=== PATIENT | male | born 2000 | race Two or more races ===

== ENCOUNTER 2021-08-22 07:28 | Emergency (ER) | payer OTHER ==
[~2021-08-22] VITALS: Ht 177.8 cm; Wt 122.5 kg
[2021-08-22] MEDS ORDERED: InsuLIN R (HUMAN) 100 UNITS in SODIUM CHL 0.9% 99 ML IV SCH (08:15)
[2021-08-22] MEDS ORDERED: SODIUM CHLORIDE 0.9% 1,000 ML IV ONE ×2 (08:15)
[2021-08-22] MEDS ORDERED: DEXTROSE (50%) 50ML SYRG IV PRN (08:15)
[2021-08-22] MEDS ORDERED: INSULIN LANTUS (GLARGINE) 1 /0.01ml (100units/ml) SC ONE (08:15)
[2021-08-22 08:21] LABS: Basophils # (auto) 0.1 10 ^3/uL (0-0.2); Basophils % (auto) 0.7 % (0.0-2.0); Eosinophils # (auto) 0 10 ^3/uL (0-0.8); Hematocrit 50.2 % (41.0-53.0); Hemoglobin 16.2 g/dL (13.5-17.5); Lymphocytes # (auto) 0.9 10 ^3/uL (0.4-5.4); Lymphocytes % (auto) 5.9 % (10.0-50.0); Mean Corpuscular Hemoglobin 28.1 pg (28.0-32.0); Mean Corpuscular Hgb Conc. 32.3 g/dL (32.0-36.0); Mean Corpuscular Volume 87.1 fL (80.0-100.0); Monocytes # (auto) 0.4 10 ^3/uL (0-1.3); Monocytes % (auto) 2.4 % (0.0-12.0); Neutrophils # (auto) 13.8 10 ^3/uL (1.6-8.6); Red Blood Cells 5.77 10^6/uL (4.5-5.90); Red Cell Distribution Width 13.7 % (11.8-14.3); White Blood Cell 15.1 10^3/uL (4.4-10.8)
[2021-08-22 08:37] LABS: Albumin 4.8 g/dL (3.4-5.0); Calcium 11.2 mg/dL (8.5-10.1); Potassium 4.9 mmol/L (3.5-5.1)
[2021-08-22 08:42] LABS: Total Protein 9.7 g/dL (6.4-8.2)
[2021-08-22 08:49] LABS: BUN/Creatinine Ratio 12.4
[2021-08-22] MEDS ORDERED: ONDANSETRON HCL 4 MG/2 ML VIAL IV ONE (09:00)
[2021-08-22] MEDS: ACCU-CHEK COMFORT CURVE STRIP VI SCH ×5 (09:07→13:59)
[2021-08-22 10:11] LABS: Urine WBC None Seen /hpf (0 - 3)
[2021-08-22 12:40] LABS: Urine Bacteria NONE SEEN /hpf (None Seen); Urine Blood Negative /uL (Negative); Urine Specific Gravity 1.024 (1.001-1.035)
[2021-08-22] MEDS ORDERED: hydrALAZINE HCL 20 MG/ML VL IV PRN ×2 (13:45→15:15)
[2021-08-22] MEDS ORDERED: LACTULOSE 20Gm/30ML SOLN PO PRN ×2 (13:45→15:15)
[2021-08-22] MEDS ORDERED: LACTATED RINGER'S 2,000 ML IV ONE (13:45)
[2021-08-22] MEDS ORDERED: ONDANSETRON HCL 4 MG/2 ML VIAL IV PRN ×2 (13:45→15:15)
[2021-08-22] MEDS ORDERED: HYDROcodone-ACET 5/325MG TAB PO PRN (13:45)
[2021-08-22] MEDS ORDERED: LORazepam 0.5 MG TAB PO PRN ×2 (13:45→15:15)
[2021-08-22] MEDS ORDERED: SODIUM CHLORIDE 0.9% 3,000 ML IV ONE (13:45)
[2021-08-22] MEDS ORDERED: cefTRIAXone 1GM/50ML D5W 50 ML IV ONE (13:45)
[2021-08-22] MEDS ORDERED: DOCUSATE SOD 100 MG CAP PO PRN ×2 (13:45→15:15)
[2021-08-22] MEDS ORDERED: NITROGLYCERIN 0.4 MG SL TAB SL PRN (13:45)
[2021-08-22] MEDS ORDERED: IPRATROPIUM BROM 0.5 MG/2.5ML INH SOL NEB ONE ×2 (13:45→15:15)
[2021-08-22] MEDS ORDERED: METOCLOPRAMIDE HCL 5MG/ml INJ 2ml VIAL IV PRN (13:45)
[2021-08-22] MEDS ORDERED: SODIUM CHLORIDE 0.9% 1,000 ML IV SCH (13:45)
[2021-08-22] MEDS ORDERED: SOD CHL 0.9%/ KCL 20MEQ 1,000 ML IV PRN (13:45)
[2021-08-22] MEDS ORDERED: MORPHINE SULFATE INJECTION 2 MG/ML SYRG IV PRN ×3 (13:45→15:15)
[2021-08-22] MEDS ORDERED: MULTIPLE VITAMINS W/ MINERALS TAB PO ONE (13:45)
[2021-08-22] MEDS ORDERED: D5W/SOD CHLO 0.9% 1,000 ML IV PRN (13:45)
[2021-08-22] MEDS ORDERED: SUCRALFATE 1 GM/10 ML ORAL SUSP PO ONE ×2 (13:45→15:15)
[2021-08-22] MEDS ORDERED: FAMOTIDINE (10MG/ML) 2ML VL IV ONE (13:45)
[2021-08-22] MEDS ORDERED: PANTOPRAZOLE 40 MG/10 ML VIAL INJ IV ONE (15:15)
[2021-08-22] MEDS ORDERED: IPRATROPIUM BROM 0.5 MG/2.5ML INH SOL NEB PRN (15:15)
[2021-08-22] MEDS ORDERED: FOLIC ACID 1 MG TAB PO ONE (15:15)
[2021-08-22] MEDS ORDERED: HYDROcodone-ACET 5/325MG TAB PO ONE (15:15)
[2021-08-22 17:00] VITALS: BP 116/68
[2021-08-22] MEDS ORDERED: IPRATROPIUM BROM 0.5 MG/2.5ML INH SOL NEB SCH (18:00)
[2021-08-22] MEDS ORDERED: SUCRALFATE 1 GM/10 ML ORAL SUSP PO SCH ×2 (22:00)
[2021-08-22] MEDS ORDERED: ATORVASTATIN 20 MG TAB PO SCH ×2 (22:00)
[2021-08-23] MEDS ORDERED: cefTRIAXone 1GM/50ML D5W 50 ML IV SCH (09:00)
[2021-08-23] MEDS ORDERED: INSULIN LANTUS (GLARGINE) 1 /0.01ml (100units/ml) SC SCH (10:00)
[2021-08-23] MEDS ORDERED: PANTOPRAZOLE 40 MG/10 ML VIAL INJ IV SCH (10:00)
[2021-08-23] MEDS ORDERED: ENOXAPARIN SOD 40 MG/0.4 ML SYRINGE SC SCH ×2 (10:00)
[2021-08-23] MEDS ORDERED: CHOLECALCIFEROL (VITD3) 2,000 UNIT CAP/TAB PO SCH ×2 (10:00)
[2021-08-23] MEDS ORDERED: FOLIC ACID 1 MG TAB PO SCH (10:00)
[2021-08-23] MEDS ORDERED: ASPirin 81 mg TAB PO SCH ×2 (10:00)
[2021-08-23] MEDS ORDERED: FAMOTIDINE (10MG/ML) 2ML VL IV SCH (10:00)
[2021-08-23] MEDS ORDERED: MULTIPLE VITAMINS W/ MINERALS TAB PO SCH (10:00)
== END 2021-08-22 17:25 | disposition left against medical advice (07) ==
LOC: ER 07:28
DX: E11.10 Type 2 diabetes mellitus with ketoacidosis without coma (principal); Z53.29 Procedure and treatment not carried out because of patient's decision for other reasons; Z20.822 Contact with and (suspected) exposure to COVID-19
CPT/HCPCS: 36415; 36600; 80053; 81001; 82010; 82805; 82962; 85025; 87086; 87426; 93005; 96365; 96366; 96368; 96372; 96375; 99285; C9113; J0696; J1815; J2405; J3490; J7030

== ENCOUNTER 2021-08-25 06:06 | Emergency (ER) | payer OTHER ==
[~2021-08-25] VITALS: Ht 177.8 cm; Wt 122.5 kg
[2021-08-25] MEDS ORDERED: LACTATED RINGER'S 2,000 ML IV ONE (06:30)
[2021-08-25 06:56] LABS: Basophils # (auto) 0 10 ^3/uL (0-0.2); Basophils % (auto) 0.2 % (0.0-2.0); Eosinophils # (auto) 0 10 ^3/uL (0-0.8); Eosinophils % (auto) 0.3 % (0.0-7.0); Hematocrit 47.9 % (41.0-53.0); Hemoglobin 16.4 g/dL (13.5-17.5); Lymphocytes # (auto) 1.9 10 ^3/uL (0.4-5.4); Lymphocytes % (auto) 12.5 % (10.0-50.0); Mean Corpuscular Hemoglobin 28.6 pg (28.0-32.0); Mean Corpuscular Hgb Conc. 34.3 g/dL (32.0-36.0); Mean Corpuscular Volume 83.2 fL (80.0-100.0); Monocytes # (auto) 0.9 10 ^3/uL (0-1.3); Monocytes % (auto) 5.8 % (0.0-12.0); Neutrophils # (auto) 12.3 10 ^3/uL (1.6-8.6); Neutrophils % (auto) 81.2 % (37.0-80.0); Nucleated Red Blood Cells % 0.1 %; Red Blood Cells 5.75 10^6/uL (4.5-5.90); Red Cell Distribution Width 13.6 % (11.8-14.3); White Blood Cell 15.2 10^3/uL (4.4-10.8)
[2021-08-25 07:30] LABS: Albumin 4.2 g/dL (3.4-5.0); Calcium 9.4 mg/dL (8.5-10.1); Magnesium 2.2 mg/dL (1.6-2.6); Potassium 3.5 mmol/L (3.5-5.1)
[2021-08-25 07:37] LABS: BUN/Creatinine Ratio 10.6; Bilirubin, Total 0.9 mg/dL (0.2-1.0); Total Protein 8.7 g/dL (6.4-8.2)
[2021-08-25 07:43] LABS: Urine WBC None Seen /hpf (0 - 3)
[2021-08-25] MEDS ORDERED: POTASSIUM CHLORIDE 20 MEQ in D5W 5% 1,000 ML IV SCH (07:45)
[2021-08-25 08:08] LABS: Urine Bacteria NONE SEEN /hpf (None Seen); Urine Blood Negative /uL (Negative); Urine Hyaline Cast FEW /lpf (0 - 2); Urine Specific Gravity 1.027 (1.001-1.035)
[2021-08-25] MEDS ORDERED: D5W 5% 1,000 ML IV SCH (08:30)
[2021-08-25] MEDS: POTASSIUM CHL 10MEQ/50ML 50 ML IV SCH ×2 (08:42→09:57)
[2021-08-25] MEDS ORDERED: InsuLIN R (HUMAN) 100 UNITS in SODIUM CHL 0.9% 99 ML IV SCH (10:00)
[2021-08-25] MEDS ORDERED: ONDANSETRON HCL 4 MG/2 ML VIAL IV ONE (10:00)
[2021-08-25] MEDS ORDERED: DEXTROSE (50%) 50ML SYRG IV PRN (10:00)
[2021-08-25] MEDS: ACCU-CHEK COMFORT CURVE STRIP VI SCH ×3 (10:25→13:35)
[2021-08-25 12:19] LABS: Albumin 3.5 g/dL (3.4-5.0); Calcium 9.2 mg/dL (8.5-10.1); Potassium 3.9 mmol/L (3.5-5.1)
[2021-08-25 12:21] LABS: BUN/Creatinine Ratio 9.9
[2021-08-25 12:27] LABS: Bilirubin, Total 0.7 mg/dL (0.2-1.0); Total Protein 7.1 g/dL (6.4-8.2)
[2021-08-25 13:36] VITALS: BP 135/74
[2021-08-25] MEDS ORDERED: ONDA-144 PO (14:44)
== END 2021-08-25 12:58 | disposition home or self-care (01) ==
LOC: ER 06:06
DX: E10.65 Type 1 diabetes mellitus with hyperglycemia (principal); E86.0 Dehydration
CPT/HCPCS: 36415; 36600; 71045; 80053; 81001; 82010; 82805; 82962; 83605; 83690; 83735; 83880; 84484; 85025; 93005; 96361; 96374; 99285; J1815; J2405; J3480

== ENCOUNTER 2024-07-14 19:20 | Inpatient (IN) | payer MEDICAID, OTHER ==
[~2024-07-14] VITALS: Ht 177.8 cm; Wt 122.9 kg
[2024-07-14] MEDS: SODIUM CHLORIDE 0.9% 1,000 ML IV SCH (00:15)
[~2024-07-14 19:20] MED LIST: ONDA-144 PO
--- NOTE | 2024-07-14 19:34 | ED.PDOC ---
HPI Comments HPI: Poor Historian. 24-year-old male presents to emergency department for midsternal chest pressure pain in the last 3-4 months nonradiating. No particular alleviating or precipitating factors however he feels when he rubs his chest it produces the pain. He also sometimes feel that when he is anxious he gets the pain. However currently he is having active chest pain while laying in the gurney. He describes it as pressure. Denies any other associated symptoms. Patient states compliance with his medications. Denies any use of drugs. Past Medcial History: Diabetes, hyperlipidemia, marijuana abuse, Past Surgical History: Denies any Patient states having positive family history of coronary artery disease on his mother's side but he is not sure. REVIEW OF SYSTEMS: CONSTITUTIONAL: Denies acute: fever, diaphoresis, chills, generalized weakness. HEAD: Denies acute: headache, photophobia Eyes: Denies acute: Double vision, vision loss, eye pain, eye discharge. EARS: Denies acute: tinnitus, hearing loss, ear discharge, ear pain, THROAT: Denies acute: sore throat, swelling, difficulty swallowing , pain with swallowing, change in voice. NECK: Denies acute: neck pain, neck swelling, stiff neck. HEART: Denies acute : , palpitations, LUNGS: Denies acute: SOB, wheezing, cough, hemoptysis ABDOMEN: Denies acute: abdominal pain, diarrhea, melena , hematemesis, hematochezia SKIN: Denies acute: rash, redness, lesions, itchiness. EXTREMITIES: Denies acute: calf pain, numbness, tingling, weakness, denies pain in extremity. Denies acute: Low back pain. Neuro: Denies acute: focal neurological deficit, motor or sensory focal neurological deficit, tremors, seizure like activity, confusion, dizziness, change in mental status, loss of bowel or bladder function, cauda equina like symptoms. : Denies acute: dysuria, hematuria, flank pain, increase in urinary frequency. PSYCH: Denies acute: hallucination, suicidal ideation, homicidal ideation. PHYSICAL EXAM: General: no acute distress, awake and alert. Head: normocephalic, atraumatic. Neck: supple, trachea is midline, no swelling. Throat: Normal phonation. Eyes:, no erythema, no purulent discharge, no proptosis, no icterus. Heart: regular tachycardic, no significant murmur appreciated. Lungs: no apparent respiratory distress, Able to speak in full sentences. No wheezing, no rhonchi, no crackles. No stridors Clear to auscultation bilaterally. Abdomen: non tender to palpation, non distended, soft, no guarding, no rebound, + bowel sounds. Neuro: Awake, Alert, oriented to name, self, situation, follows commands GCS=15. Speech is normal. Skin: no petechia, no purpura, no cyanosis, non-pale, not jaundice. Lower extremities: --no - Pitting edema no deformity, no focal swelling, no calf TTP. Makes eye contact. moves all four extremities. Face: no apparent facial droop. Ambulating in the ED independently. Chief Complaint: Chest Pain Time Seen by MD: 19:26 Primary Care Provider: AFSANEHIES Reviewed Notes: Nurses Notes, Medications, Allergies Allergies: Coded Allergies: NO KNOWN ALLERGIES (Unverified , 06/01/16) Home Meds Active Scripts Ondansetron (Zofran) 4 Mg Tab, 4 MG PO TID PRN for 3 Days, #9 TAB Prov:DEAN MCKEON MD 08/25/21 Reported Medications Fluoxetine Hcl (Fluoxetine Hcl) 10 Mg Cap, 10 MG PO DAILY for 30 Days, MG 07/16/24 Atorvastatin Calcium (ATORVASTATIN CALCIUM) 10 Mg Tab, 1 TAB PO DAILY, #30 TAB 5 Refills 07/16/24 Discontinued Reported Medications Atorvastatin Calcium (Lipitor) 20 Mg Tab, 1 TAB PO DAILY, #90 TAB 1 Refill 07/15/24 Information Source: Patient Mode of Arrival: Ambulatory Past Medical History PAST MEDICAL HISTORY: DM Surgical History: Denies all surgeries Family History Family History: No family hx of Cancer, No family hx of DM Social History Smoker: Non-Smoker Alcohol: Denies ETOH Use Drugs: Denies Drug Use Lives In: Home Was a procedure done? Was a procedure done?: No CP Differential Dx Differential Diagnosis: N/A Differential Diagnosis: Other (Ddx include but not limitied to gastritis, musculoskeletal pain, radiculopathy, atypical chest pain, dissection, aneurysm, ACS, unstable angina, hiatal hernia, GERD, anxiety, costochondritis, PE, pneumothroax, neoplasm, cardiac ischemia, drug abuse, anemia.) X-Ray, Labs, Meds, VS Vital Signs Date Time Temp Pulse Resp B/P (MAP) Pulse Ox O2 Delivery O2 Flow Rate FiO2 07/14/24 19:44 98.2 108 20 144/83 (103) 96 07/14/24 19:25 106 Lab Test 07/14/24 21:15 07/14/24 20:40 07/14/24 19:30 Range/Units Serum Osmolality 318 H 278-298 mOsm/kg Phosphorus Level 4.4 2.4-5.1 mg/dL Troponin I High Sensitivity 10 9 </=54 ng/L Beta-Hydroxybutyric Acid > 4.500 H < 0.4 mmol/L White Blood Count 14.9 H 4.4-10.8 10^3/uL Red Blood Count 5.85 4.5-5.90 10^6/uL Hemoglobin 16.3 13.5-17.5 g/dL Hematocrit 49.4 41.0-53.0 % Mean Corpuscular Volume 84.4 80.0-100.0 fL Mean Corpuscular Hemoglobin 27.9 L 28.0-32.0 pg Mean Corpuscular Hemoglobin Concent 33.0 32.0-36.0 g/dL Red Cell Distribution Width 13.6 11.8-14.3 % Platelet Count 395 140-450 10^3/uL Mean Platelet Volume 8.7 6.9-10.8 fL Neutrophils (%) (Auto) 81.0 H 37.0-80.0 % Lymphocytes (%) (Auto) 13.6 10.0-50.0 % Monocytes (%) (Auto) 4.0 0.0-12.0 % Eosinophils (%) (Auto) 0.7 0.0-7.0 % Basophils (%) (Auto) 0.7 0.0-2.0 % Neutrophils # (Auto) 12.1 H 1.6-8.6 10 ^3/uL Lymphocytes # (Auto) 2.0 0.4-5.4 10 ^3/uL Monocytes # (Auto) 0.6 0-1.3 10 ^3/uL Eosinophils # (Auto) 0.1 0-0.8 10 ^3/uL Basophils # (Auto) 0.1 0-0.2 10 ^3/uL Nucleated Red Blood Cells 0.1 % Prothrombin Time 11.4 9.3-11.8 sec Prothrombin Time INR 1.08 0.9-1.15 Activated Partial Thromboplast Time 25.0 24.5-34.5 SEC D-Dimer, Quantitative < 0.19 0.0-0.49 mg/L FEU Sodium Level 132 L 136-145 mmol/L Potassium Level 4.5 3.5-5.1 mmol/L Chloride Level 95 L 98-107 mmol/L Carbon Dioxide Level 14 L 20-31 mmol/L Anion Gap 23 H 5-15 Blood Urea Nitrogen 14 9-23 mg/dL Creatinine 1.24 0.700-1.30 mg/dL Glomerular Filtration Rate Calc 82 >90 mL/min BUN/Creatinine Ratio 11.3 10.0-20.0 Serum Glucose 440 *H 74-106 mg/dL Calcium Level 10.9 H 8.7-10.4 mg/dL Magnesium Level 1.9 1.6-2.6 mg/dL Total Bilirubin 1.2 H 0.2-1.0 mg/dL Aspartate Amino Transferase (AST) 17 13-40 U/L Alanine Aminotransferase (ALT) 25 7-40 U/L Alkaline Phosphatase 148 H 46-116 U/L B-Type Natriuretic Peptide 24.46 0-100 pg/mL Total Protein 7.6 5.7-8.2 g/dL Albumin 5.2 H 3.2-4.8 g/dL [place] [id number] Ph: [phone] DIAGNOSTIC IMAGING Diagnostic Imaging Report : [id number] Signed PATIENT: MO WILLIAM ACCT: [id number] UNIT: [id number] : 2000 LOC: ER ROOM / BED: / AGE / SEX: 24 / M ADM STATUS: REG ER SERVICE 26 ORDERING PHYSICIAN: VIRGEN ELLER DO PROCEDURE(s): CXRP - CHEST PORTABLE REASON: CP ORDER NUMBER(s): [id number], ACCESSION NUMBER(s): [id number] EXAM: XY CHEST PORTABLE TECHNIQUE: Single frontal chest radiograph CLINICAL HISTORY: CP COMPARISON: CHEST PORTABLE on DOS: 08/25/21 Findings/Impression: Frontal chest radiograph demonstrates no acute osseous or superficial soft tissue abnormalities. The trachea is midline. The cardiac silhouette and mediastinum are within normal limits. No pneumothorax, pleural effusions, or consolidations. ATED BY: YENIFER BAUER DO DICTATED DATE/TIME: 07/14/241954 SIGNED BY: YENIFER BAUER DO SIGNED DATE/TIME: 07/14/241954 CC: Time of 1ST Reevaluation: 00:00 Reevaluation 1ST: Improved Patient Education/Counseling: Diagnosis, Treatment Family Education/Counseling: No Family Present Comments Patient presented with the above HPI. Hyperglycemia/DKA Cardiac workup was initiated. patient was found with the above mentioned diagnosis. Hyperkalemia protocol was initiated. the following medications were ordered: Zofran, insulin, sodium bicarbonate, accucheck, dextrose, insulin drip, IV fluids, NTG, ASA the following tests were ordered: CMP, CBC, UA, EKG, CXR, BMP, acetone, osmolality serum, beta-hydroxybutyrate, magnesium, drug screen, D-dimer, troponin, BNP, PTPTT, CBC please refer to order lists of meds and tests obtained by myself Dr. Eller. Patient ED course and VS have been stabilized. Patient has been reassessed in the ED and remained in a stable condition. Pertinent incidental findings were discussed with the patient and/or family. Patient/family voices understanding and is agreeable with plan. Patient has been observed in the ED adequate length of time to insure improvement/stability. Escalation of care considered: Consideration of escalation to observation or admission Patient was ADMITTED to the medicine team for further evaluation and treatment of their presentation. All the reports of any imaging studies that were ordered by myself were reviewed by myself. Departure 1 Departure Time of Disposition: 20:43 Impression: Primary Impression: DKA (diabetic ketoacidosis) Additional Impression: Chest pain Disposition: 09 ADMITTED INPATIENT Admit to: ICU Condition: Guarded Discharged With: Self Critical Care Note Critical Care Time?: Yes (1 hr-critical care time only) Heart Score Heart Score: Heart Score Response (Comments) Value History Slightly Suspicious 0 EKG Normal 0 Age <45 0 Risk Factors 1 or 2 risk factors 1 Troponin Normal limit 0 Total 1 I personally scribed for VIRGEN ELLER DO ([email or web address]) on 07/14/24 at 21:02. Electronically submitted by Freddy Martínez ([email or web address]). I personally scribed for VIRGEN ELLER DO ([email or web address]) on 07/15/24 at 00:30. Electronically submitted by Go Miguel ([email or web address]). VIRGEN ELLER DO Jul 14, 2024 19:34
[2024-07-14 19:43] LABS: Basophils # (auto) 0.1 10 ^3/uL (0-0.2); Basophils % (auto) 0.7 % (0.0-2.0); Eosinophils # (auto) 0.1 10 ^3/uL (0-0.8); Eosinophils % (auto) 0.7 % (0.0-7.0); Hematocrit 49.4 % (41.0-53.0); Hemoglobin 16.3 g/dL (13.5-17.5); Lymphocytes % (auto) 13.6 % (10.0-50.0); Mean Corpuscular Hemoglobin 27.9 pg (28.0-32.0); Mean Corpuscular Volume 84.4 fL (80.0-100.0); Monocytes # (auto) 0.6 10 ^3/uL (0-1.3); Neutrophils # (auto) 12.1 10 ^3/uL (1.6-8.6); Nucleated Red Blood Cells % 0.1 %; Platelet Count (auto) 395 10^3/uL (140-450); Red Blood Cells 5.85 10^6/uL (4.5-5.90); Red Cell Distribution Width 13.6 % (11.8-14.3); White Blood Cell 14.9 10^3/uL (4.4-10.8)
[2024-07-14] MEDS: NITROGLYCERIN 0.4 MG SL TAB SL ONE (19:45)
--- NOTE | 2024-07-14 19:57 | DVH ---
EXAM: XY CHEST PORTABLE TECHNIQUE: Single frontal chest radiograph CLINICAL HISTORY: CP COMPARISON: CHEST PORTABLE on DOS: 08/25/21 Findings/Impression: Frontal chest radiograph demonstrates no acute osseous or superficial soft tissue abnormalities. The trachea is midline. The cardiac silhouette and mediastinum are within normal limits. No pneumothorax, pleural effusions, or consolidations.
[2024-07-14 20:00] LABS: INR 1.08 (0.9-1.15); Prothrombin Time 11.4 sec (9.3-11.8)
[2024-07-14 20:11] LABS: Alanine Aminotransferase 25 U/L (7-40); Anion Gap 23 (5-15); Aspartate Aminotransferase 17 U/L (13-40); BUN/Creatinine Ratio 11.3 (10.0-20.0); Bilirubin, Total 1.2 mg/dL (0.2-1.0); Blood Urea Nitrogen 14 mg/dL (9-23); Potassium 4.5 mmol/L (3.5-5.1); Total Protein 7.6 g/dL (5.7-8.2)
[2024-07-14 20:14] LABS: Albumin 5.2 g/dL (3.2-4.8); Alkaline Phosphatase 148 U/L (46-116); Calcium 10.9 mg/dL (8.7-10.4); Carbon Dioxide 14 mmol/L (20-31); Chloride 95 mmol/L (98-107); Sodium 132 mmol/L (136-145)
[2024-07-14 20:16] LABS: Glucose 440 mg/dL (74-106)
[2024-07-14] MEDS ORDERED: DEXTROSE (50%) 50ML SYRG IV PRN ×2 (20:45→22:15)
[2024-07-14] MEDS: SODIUM CHLORIDE 0.9% 1,000 ML IV ONE (21:40)
[2024-07-14] MEDS: SODIUM BICARB 8.4% 50Meq/50ml SYR Vial IV ONE (21:44)
[2024-07-14] MEDS ORDERED: NITROGLYCERIN 0.4 MG SL TAB SL PRN (21:45)
[2024-07-14] MEDS: ASPirin 325 MG TAB PO ONE (21:45)
[2024-07-14] MEDS: InsuLIN REG 1unit/0.01ml Soln (100units/ml) IV ONE (21:47)
[2024-07-14] MEDS: INSULIN LANTUS (GLARGINE) 1 /0.01ml (100units/ml) SC ONE (21:48)
[2024-07-14 21:52] LABS: Base Excess -11.7 mmol/L (-2.0-3.0)
[2024-07-14 21:55] VITALS: PULSE 108; RESP 20; O2SAT 100
[2024-07-14] MEDS: ONDANSETRON HCL 4 MG/2 ML VIAL IV ONE (21:59)
--- NOTE | 2024-07-14 22:16 | DVHHP2 ---
History of Present Illness Reason for Visit: Nausea and vomiting History of Present Illness 24-year-old male presents for evaluation of nausea and vomiting. Patient presents with a three day history of worsening nausea and vomiting. He also reports diffuse abdominal pain. Patient is noncompliant with his insulin regimen for diabetes mellitus. Denies fever or chills. He also reports palpitations. Other acute complaints reported. Past Medical History Diabetes mellitus, dyslipidemia Past Surgical History Denies Family History Coronary artery disease Smoke: No ALCOHOL: none Drugs: Marijuana Lives: with Family Review of Systems Review of Systems Review of systems are currently negative otherwise addressed in HPI. Allergies: Coded Allergies: NO KNOWN ALLERGIES (Unverified , 06/01/16) Medications Current Medications Medications Dose Ordered Sig/Simone Route Start Time Stop Time Status Last Admin Dose Admin Sodium Chloride 1,000 ml @ 500 mls/hr Q2H IV 07/14/24 20:45 07/15/24 00:44 Sodium Chloride 1,000 ml @ 250 mls/hr Q4H IV 07/15/24 00:45 07/15/24 02:44 Sodium Chloride 1,000 ml @ 150 mls/hr Q6H40M IV 07/15/24 02:45 Insulin Human (Reg)/Sodium Chloride 100 ml @ 0.5 mls/hr Q24H IV 07/14/24 20:45 Dextrose 50 ml UD PRN IV 07/14/24 20:45 Diagnostic Test (Pha) 1 strip Q90MIN 07/14/24 21:00 Nitroglycerin 0.4 mg Q5MINP PRN SL 07/14/24 21:45 Morphine Sulfate 2 mg Q30M PRN IV 07/14/24 21:45 Dextrose 50 ml UD PRN IV 07/14/24 22:15 UNV Insulin Glargine 15 units DAILY SC 07/15/24 10:00 UNV Exam Vital Signs Vital Signs Date Time Temp Pulse Resp B/P (MAP) Pulse Ox O2 Delivery O2 Flow Rate FiO2 07/14/24 21:55 108 20 100 Room Air* 0 21 07/14/24 21:54 145/59 (87) 07/14/24 19:44 98.2 Exam Gen: 24-year-old male in mild distress Skin: Warm, dry, normal color and texture, no rash. HEENT: Normocephalic atraumatic, mucous membranes moist and pink. Neck: Cervical and supraclavicular nodes normal without enlargement, trachea is midline, thyroid gland is normal without masses. Pulmonary: Clear to auscultation and percussion bilaterally. Cardiac: Sinus tachycardia Abdomen: Soft, nontender, nondistended, bowel sounds present all 4 quadrants, no guarding, no rigidity, no organomegaly. Extremities: No cyanosis, clubbing, no edema Neuro: Cranial nerves II through XII grossly intact, normal affect and speech, no focal motor deficits. Labs/Xrays ORDERING PHYSICIAN: VIRGEN ELLER DO PROCEDURE(s): CXRP - CHEST PORTABLE REASON: CP ORDER NUMBER(s): [id number], ACCESSION NUMBER(s): [id number] EXAM: XY CHEST PORTABLE TECHNIQUE: Single frontal chest radiograph CLINICAL HISTORY: CP COMPARISON: CHEST PORTABLE on DOS: 08/25/21 Findings/Impression: Frontal chest radiograph demonstrates no acute osseous or superficial soft tissue abnormalities. The trachea is midline. The cardiac silhouette and mediastinum are within normal limits. No pneumothorax, pleural effusions, or consolidations. Labs Test 07/14/24 21:39 07/14/24 21:38 07/14/24 21:15 07/14/24 20:40 Range/Units POC Glucose 506 *H 70-106 mg/dl Blood Gas Specimen Type Arterial Blood Gas Sample Site Right radial Blood Gas Patient Temperature 37.0 Arterial Blood Date Drawn [id number] Arterial Blood pH 7.323 L 7.350-7.450 Arterial Blood Partial Pressure CO2 23.5 L 35.0-48.0 mmHg Arterial Blood Partial Pressure O2 99.7 83.0-108.0 mmHg Arterial Blood HCO3 11.9 L 21.0-28.0 mmol/L Arterial Blood Oxygen Saturation 97.5 94.0-98.0 % Arterial Blood Base Excess -11.7 L -2.0-3.0 mmol/L Arterial Blood Oxyhemoglobin 96.0 94.0-98.0 % Arterial Blood Carboxyhemoglobin 0.7 0.5-1.5 % Arterial Blood Methemoglobin 0.8 0.0-1.5 % Miko Test Yes Blood Gas Total Hemoglobin 17.00 13.5-17.5 g/dL Blood Gas Modality Room air FiO2 % 21.0 Specimen Drawn By Deanna gilbert rrt Blood Gas Critical Value Read Back yes Blood Gas Notified Time [id number] Serum Osmolality 318 H 278-298 mOsm/kg Phosphorus Level 4.4 2.4-5.1 mg/dL Troponin I High Sensitivity 10 </=54 ng/L Test 07/14/24 19:30 Range/Units White Blood Count 14.9 H 4.4-10.8 10^3/uL Red Blood Count 5.85 4.5-5.90 10^6/uL Hemoglobin 16.3 13.5-17.5 g/dL Hematocrit 49.4 41.0-53.0 % Mean Corpuscular Volume 84.4 80.0-100.0 fL Mean Corpuscular Hemoglobin 27.9 L 28.0-32.0 pg Mean Corpuscular Hemoglobin Concent 33.0 32.0-36.0 g/dL Red Cell Distribution Width 13.6 11.8-14.3 % Platelet Count 395 140-450 10^3/uL Mean Platelet Volume 8.7 6.9-10.8 fL Neutrophils (%) (Auto) 81.0 H 37.0-80.0 % Lymphocytes (%) (Auto) 13.6 10.0-50.0 % Monocytes (%) (Auto) 4.0 0.0-12.0 % Eosinophils (%) (Auto) 0.7 0.0-7.0 % Basophils (%) (Auto) 0.7 0.0-2.0 % Neutrophils # (Auto) 12.1 H 1.6-8.6 10 ^3/uL Lymphocytes # (Auto) 2.0 0.4-5.4 10 ^3/uL Monocytes # (Auto) 0.6 0-1.3 10 ^3/uL Eosinophils # (Auto) 0.1 0-0.8 10 ^3/uL Basophils # (Auto) 0.1 0-0.2 10 ^3/uL Nucleated Red Blood Cells 0.1 % Prothrombin Time 11.4 9.3-11.8 sec Prothrombin Time INR 1.08 0.9-1.15 Activated Partial Thromboplast Time 25.0 24.5-34.5 SEC D-Dimer, Quantitative < 0.19 0.0-0.49 mg/L FEU Sodium Level 132 L 136-145 mmol/L Potassium Level 4.5 3.5-5.1 mmol/L Chloride Level 95 L 98-107 mmol/L Carbon Dioxide Level 14 L 20-31 mmol/L Anion Gap 23 H 5-15 Blood Urea Nitrogen 14 9-23 mg/dL Creatinine 1.24 0.700-1.30 mg/dL Glomerular Filtration Rate Calc 82 >90 mL/min BUN/Creatinine Ratio 11.3 10.0-20.0 Serum Glucose 440 *H 74-106 mg/dL Calcium Level 10.9 H 8.7-10.4 mg/dL Magnesium Level 1.9 1.6-2.6 mg/dL Total Bilirubin 1.2 H 0.2-1.0 mg/dL Aspartate Amino Transferase (AST) 17 13-40 U/L Alanine Aminotransferase (ALT) 25 7-40 U/L Alkaline Phosphatase 148 H 46-116 U/L B-Type Natriuretic Peptide 24.46 0-100 pg/mL Total Protein 7.6 5.7-8.2 g/dL Albumin 5.2 H 3.2-4.8 g/dL Assessment/Plan Assessment/Plan Assessment Diabetic ketoacidosis Severe dehydration Electrolyte imbalance Noncompliant Plan Admit the patient to [facility] to the hospitalist DKA protocol Continue treatment per orders Total critical care time excluding procedures performed this 50 minutes. Plan discussed with: Patient My Orders Orders - RICHARD COBB Procedure Category Date Status Time Admit ADMIT 07/14/24 Transmitted 21:35 Nitroglycerin [facility] 07/14/24 In Process Sublingual (Ntrostat 21:45 Morphine Sulfate [facility] 07/14/24 In Process Injection 21:45 Stat Ekg For Chest [facility] 07/14/24 In Process Pain 21:35 Notify Of Changes [facility] 07/14/24 In Process From Base 21:35 Yard Associate For [facility] 07/14/24 In Process 24 Hours 21:35 Emergency Dysrhythmia JOSE 07/14/24 In Process Protocol 21:35 Rhythm Strips Once [facility] 07/14/24 In Process Every Shift 21:35 Oxygen By Nasal RT 07/14/24 Transmitted Cannula 21:35 Dextrose 50% Syringe PHA 07/14/24 Logged 22:15 Basic Metabolic Panel LAB 07/15/24 Verified 01:00 Basic Metabolic Panel LAB 07/15/24 Verified 07:00 Basic Metabolic Panel LAB 07/15/24 Verified 13:00 Basic Metabolic Panel LAB 07/15/24 Verified 19:00 Insulin Lantus PHA 07/15/24 Logged (Glargine) (Lantus) 10:00 Date of Service: Jul 14, 2024 Billing Provider: RICHARD COBB Common Visit Codes: [id number] CARE 30-74 MIN RICHARD COBB Jul 14, 2024 22:16
[2024-07-14] MEDS: ACCU-CHEK COMFORT CURVE STRIP VI SCH (22:30)
[2024-07-14] MEDS: INSULIN DRIP 100 UNIT/100ML 100 ML IV SCH (23:07)
[2024-07-14 23:18] VITALS: PULSE 104; RESP 16; O2SAT 100
[2024-07-15] MEDS: SODIUM CHLORIDE 0.9% 1,000 ML IV ONE (00:15)
[2024-07-15 02:11] LABS: Chloride 104 mmol/L (98-107); Potassium 4.2 mmol/L (3.5-5.1); Sodium 139 mmol/L (136-145)
[2024-07-15 02:12] LABS: Anion Gap 21 (5-15); Calcium 9.8 mg/dL (8.7-10.4)
[2024-07-15 02:17] LABS: Blood Urea Nitrogen 11 mg/dL (9-23)
[2024-07-15 02:18] LABS: Carbon Dioxide 14 mmol/L (20-31); Glucose 278 mg/dL (74-106)
[2024-07-15] MEDS: ONDANSETRON HCL 4 MG/2 ML VIAL IV PRN (02:20)
[2024-07-15] MEDS ORDERED: SODIUM CHLORIDE 0.9% 1,000 ML IV SCH (02:45)
[2024-07-15] MEDS: SODIUM CHLORIDE 0.9% 1,000 ML IV SCH ×2 (02:58→07:20)
--- NOTE | 2024-07-15 03:00 | ECG ---
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
[2024-07-15] MEDS: METOCLOPRAMIDE HCL 5MG/ml INJ 2ml VIAL IV ONE ×2 (04:55→23:29)
[2024-07-15 05:49] LABS: Urine Bacteria None Seen /hpf (None Seen)
[2024-07-15 05:55] LABS: Urine Blood Negative /uL (Negative); Urine Clarity Clear (Clear); Urine Color Light-Yellow (Yellow); Urine Protein, UAD Negative (Negative); Urine Specific Gravity 1.021 (1.001-1.035); Urine Squamous Epithelial Cell None Seen /hpf (<5); Urine Urobilinogen Normal (Negative)
[2024-07-15 05:59] LABS: Chloride 105 mmol/L (98-107); Potassium 4.4 mmol/L (3.5-5.1); Sodium 139 mmol/L (136-145)
[2024-07-15 06:00] LABS: Anion Gap 14 (5-15)
[2024-07-15 06:05] LABS: BUN/Creatinine Ratio 7.5 (10.0-20.0)
[2024-07-15 06:06] LABS: Barbiturate Scree,Urine Neg (NEGATIVE); Cannabinoid Screen, Urine Pos (NEGATIVE); Opiate Scree,Urine Neg (NEGATIVE); Phencyclidine Screen, Urine Neg (NEGATIVE)
[2024-07-15 06:07] LABS: Blood Urea Nitrogen 8 mg/dL (9-23); Carbon Dioxide 20 mmol/L (20-31); Glucose 188 mg/dL (74-106)
[2024-07-15 06:07] LABS: Amphetamine Screen, Urine Neg (NEGATIVE); Benzodiazephine Screen, Urine Neg (NEGATIVE); Cocaine Screen, Urine Neg (NEGATIVE)
[2024-07-15 06:30] LABS: Urine WBC < 1 /HPF (0-3)
--- NOTE | 2024-07-15 06:39 | ECG ---
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
[2024-07-15 07:30] VITALS: PULSE 75; RESP 14; O2SAT 100
[2024-07-15] MEDS: INSULIN LANTUS (GLARGINE) 1 /0.01ml (100units/ml) SC SCH (09:59)
[2024-07-15] MEDS ORDERED: DEXTROSE (50%) 50ML SYRG IV PRN ×2 (10:00→23:00)
[2024-07-15] MEDS: ACCU-CHEK COMFORT CURVE STRIP VI SCH (11:34)
[2024-07-15] MEDS: InsuLIN REG 1unit/0.01ml Soln (100units/ml) SC SCH (11:35)
[2024-07-15 13:41] LABS: Chloride 106 mmol/L (98-107); Sodium 137 mmol/L (136-145)
[2024-07-15 13:42] LABS: Anion Gap 14 (5-15); Calcium 9.3 mg/dL (8.7-10.4); Carbon Dioxide 17 mmol/L (20-31)
[2024-07-15 13:47] LABS: BUN/Creatinine Ratio 7.1 (10.0-20.0)
[2024-07-15 13:52] LABS: Blood Urea Nitrogen 7 mg/dL (9-23); Glucose 171 mg/dL (74-106)
[2024-07-15 15:57] VITALS: BP 133/76; PULSE 87; RESP 19; TEMP 98.3; O2SAT 97
[2024-07-15 16:30] VITALS: BP 133/76; PULSE 87; RESP 19; TEMP 98.3; O2SAT 97
--- NOTE | 2024-07-15 17:16 | DVHPN2 ---
Subjective Patient denies any symptoms. Reviewed: Care Plan, H&P, Labs, Medications Changes from previous H/P or p: No Changes General: Per HPI Objective Vitals Vital Signs Date Time Temp Pulse Resp B/P (MAP) Pulse Ox O2 Delivery O2 Flow Rate FiO2 07/15/24 16:30 98.3 87 19 133/76 (95) 97 98.3 07/15/24 15:45 Room Air* 0 21 General Appearance: Alert, Oriented X3, Cooperative, Other (Obese) HEENT: Atraumatic, PERRLA, EOMI Lungs: Clear to auscultation, Normal air movement Cardiovascular: Normal S1, Normal S2 Abdomen: Normal bowel sounds, Soft, No tenderness, No hepatospenomegaly Musculoskeletal: Normal sensory function, Normal motor function Neuro: Normal gait, Normal speech Psych/Mental Status: Mental status NL, Mood NL Medications Current Medications Medications Dose Ordered Sig/Simone Route Start Time Stop Time Status Last Admin Dose Admin Nitroglycerin 0.4 mg Q5MINP PRN SL 07/14/24 21:45 Morphine Sulfate 2 mg Q30M PRN IV 07/14/24 21:45 Insulin Glargine 15 units DAILY SC 07/15/24 10:00 Ondansetron HCl 4 mg Q8HPRN PRN IV 07/15/24 02:15 07/15/24 02:20 4 MG Diagnostic Test (Pha) 1 strip ACHS 07/15/24 11:30 07/15/24 11:34 1 STRIP Insulin Human Regular ACHS SC 07/15/24 11:30 07/15/24 11:35 2 UNITS Dextrose 50 ml UD PRN IV 07/15/24 10:00 Laboratory Results Laboratory Tests 07/14/24 19:30 07/15/24 13:07 Chemistry Test 07/14/24 19:30 07/14/24 20:40 07/15/24 00:58 07/15/24 05:19 Albumin 5.2 g/dL (3.2-4.8) H Calcium Level 10.9 mg/dL (8.7-10.4) H 9.8 mg/dL (8.7-10.4) 10.0 mg/dL (8.7-10.4) Magnesium Level 1.9 mg/dL (1.6-2.6) Total Protein 7.6 g/dL (5.7-8.2) Phosphorus Level 4.4 mg/dL (2.4-5.1) Test 07/15/24 13:07 Calcium Level 9.3 mg/dL (8.7-10.4) Coagulation Test 07/14/24 19:30 Prothrombin Time 11.4 sec (9.3-11.8) Prothrombin Time INR 1.08 (0.9-1.15) Activated Partial Thromboplast Time 25.0 SEC (24.5-34.5) D-Dimer, Quantitative < 0.19 mg/L FEU (0.0-0.49) Cardiac Markers Test 07/14/24 19:30 B-Type Natriuretic Peptide 24.46 pg/mL (0-100) LFT Test 07/14/24 19:30 Alanine Aminotransferase (ALT) 25 U/L (7-40) Alkaline Phosphatase 148 U/L (46-116) H Aspartate Amino Transferase (AST) 17 U/L (13-40) Total Bilirubin 1.2 mg/dL (0.2-1.0) H Urinalysis Test 07/15/24 05:30 Urine Color Light-yellow (Yellow) Urine Clarity Clear (Clear) Urine pH 5.0 (5.0-9.0) Urine Specific [place] 1.021 (1.001-1.035) Urine Protein Negative (Negative) Urine Ketones 4+ (Negative) H Urine Blood Negative /uL (Negative) Urine Nitrite Negative (Negative) Urine Bilirubin Negative (Negative) Urine Urobilinogen Normal mg/dL (Negative) Urine Leukocyte Esterase Negative /uL (Negative) Urine RBC <1 /hpf (0 - 3) Urine Microscopic WBC < 1 /HPF (0-3) Urine Squamous Epithelial Cells None seen /hpf (<5) Urine Bacteria None seen /hpf (None Seen) Urine Glucose 4+ mg/dL (Normal) H Blood Gas Results Test 07/14/24 21:38 Arterial Blood pH 7.323 (7.350-7.450) FiO2 % 21.0 Labs and/or images reviewed: Labs reviewed by me, Image(s) reviewed by me Assessment/Plan Assessment/Plan Impression: -diabetic ketoacidosis -juvenile diabetes -medication noncompliance -obesity -sirs without organ dysfunction Plan: -discussion made with the patient regarding home medications. Apparently he fell off of his father's insurance when he turned 24 and has not been compliant with his medications. Patient was states that he pays for long-acting and short-acting insulin add pocket. Patient also reports that he was noncompliant with a consistent carbohydrate diet. -patient has improvement with blood sugars in his out of diabetic ketoacidosis. Continue regular insulin sliding scale and Lantus -repeat labs in a.m. -discharge planning tomorrow with new sliding scale based on 24 hour coverage while in the hospital. Total time spent with patient and family regarding advance care plannin minutes. Total time spent with patient discussing and formulating plan of care: 35 minutes. This medical document was created using an electronic medical record system with [employer] dictation system. Although this document has been carefully reviewed, there may still be some phonetic and typographical errors. These areas are purely typographical due to imperfections of the software programs, and do not reflect any compromise in the patient's medical care. Plan discussed with: Patient, Other (RN) My Orders Orders - JUDITH WATTERS NP Procedure Category Date Status Time Basic Metabolic Panel LAB 07/16/24 Verified 04:00 Hemoglobin A1c LAB 07/15/24 Verified 17:12 Date of Service: Jul 15, 2024 Billing Provider: JUDITH WATTERS NP Common Visit Codes: [id number] INP/OBS CARE(HIGH) Secondary Visit Codes: [id number] CARE PLAN 30 MINUTES JUDITH WATTERS NP Jul 15, 2024 17:16
[2024-07-15] MEDS ORDERED: ATOR20TA PO (18:19)
[2024-07-15 19:33] LABS: Chloride 99 mmol/L (98-107)
[2024-07-15 19:34] LABS: Anion Gap 17 (5-15); Calcium 9.7 mg/dL (8.7-10.4)
[2024-07-15 19:39] LABS: BUN/Creatinine Ratio 8.5 (10.0-20.0); Blood Urea Nitrogen 10 mg/dL (9-23)
[2024-07-15 19:43] LABS: Carbon Dioxide 18 mmol/L (20-31); Glucose 347 mg/dL (74-106); Sodium 134 mmol/L (136-145)
[2024-07-15 21:00] VITALS: BP 157/90; PULSE 81; RESP 20; TEMP 98.6; O2SAT 97
[2024-07-16] VITALS (29 sets, daily range): BP systolic 103–165; BP diastolic 55–94; PULSE 58–99; RESP 11–20; TEMP 98–99.2; O2SAT 93–99
[2024-07-16] MEDS: ACCU-CHEK COMFORT CURVE STRIP VI SCH ×2 (00:15→10:38)
[2024-07-16] MEDS: InsuLIN REG 1unit/0.01ml Soln (100units/ml) SC SCH (00:19)
[2024-07-16] MEDS: traMADol HCL 50 MG TAB PO ONE (01:22)
[2024-07-16] MEDS ORDERED: FLUO-126 PO (07:26)
[2024-07-16] MEDS ORDERED: ATOR10TA52 PO (07:26)
[2024-07-16 07:50] LABS: Chloride 102 mmol/L (98-107); Potassium 3.9 mmol/L (3.5-5.1); Sodium 137 mmol/L (136-145)
[2024-07-16 07:51] LABS: Anion Gap 22 (5-15); Calcium 10.2 mg/dL (8.7-10.4)
[2024-07-16 07:55] LABS: Carbon Dioxide 13 mmol/L (20-31)
[2024-07-16 07:56] LABS: BUN/Creatinine Ratio 6.3 (10.0-20.0)
[2024-07-16 07:57] LABS: Blood Urea Nitrogen 7 mg/dL (9-23); Glucose 261 mg/dL (74-106)
[2024-07-16] MEDS ORDERED: DEXTROSE (50%) 50ML SYRG IV PRN ×2 (09:00→09:30)
--- NOTE | 2024-07-16 09:25 | DVHPN2 ---
Subjective Nausea and vomiting Reviewed: Care Plan, H&P, Labs, Medications Changes from previous H/P or p: Changes General: Per HPI Objective Vitals Vital Signs Date Time Temp Pulse Resp B/P (MAP) Pulse Ox O2 Delivery O2 Flow Rate FiO2 07/16/24 08:00 Room Air* 0 21 07/16/24 05:00 98.1 72 20 103/55 (71) 97 98.1 Intake/Output Intake and Output 07/16/24 07:00 Intake Total 950 ml Balance 950 ml Intake Oral 800 ml IV Total 150 ml # Voids 4 General Appearance: Alert, Oriented X3, Cooperative, Other (Obese) HEENT: Atraumatic, PERRLA, EOMI Lungs: Clear to auscultation, Normal air movement Cardiovascular: Normal S1, Normal S2 Abdomen: Normal bowel sounds, Soft, No tenderness, No hepatospenomegaly Musculoskeletal: Normal sensory function, Normal motor function Neuro: Normal gait, Normal speech Psych/Mental Status: Mental status NL, Mood NL Medications Current Medications Medications Dose Ordered Sig/Simone Route Start Time Stop Time Status Last Admin Dose Admin Nitroglycerin 0.4 mg Q5MINP PRN SL 07/14/24 21:45 Morphine Sulfate 2 mg Q30M PRN IV 07/14/24 21:45 Insulin Glargine 15 units DAILY SC 07/15/24 10:00 Ondansetron HCl 4 mg Q8HPRN PRN IV 07/15/24 02:15 07/16/24 05:54 4 MG Sodium Chloride 1,000 ml @ 150 mls/hr Q6H40M IV 07/16/24 09:00 Diagnostic Test (Pha) 1 strip IQ4HR 07/16/24 12:00 Insulin Human Regular IQ4HR SC 07/16/24 12:00 Dextrose 50 ml UD PRN IV 07/16/24 09:00 Metoclopramide HCl 10 mg Q8HPRN PRN IV 07/16/24 09:30 UNV Morphine Sulfate 1 mg Q4HP PRN IV 07/16/24 09:30 UNV Laboratory Results Laboratory Tests 07/14/24 19:30 07/16/24 06:33 Chemistry Test 07/15/24 13:07 07/15/24 19:08 07/16/24 06:33 Calcium Level 9.3 mg/dL (8.7-10.4) 9.7 mg/dL (8.7-10.4) 10.2 mg/dL (8.7-10.4) HgA1c, TSH Test 07/15/24 19:08 Hemoglobin A1c 8.0 % A1C (<5.7) H Urinalysis Test 07/15/24 05:30 Urine Color Light-yellow (Yellow) Urine Clarity Clear (Clear) Urine pH 5.0 (5.0-9.0) Urine Specific [place] 1.021 (1.001-1.035) Urine Protein Negative (Negative) Urine Ketones 4+ (Negative) H Urine Blood Negative /uL (Negative) Urine Nitrite Negative (Negative) Urine Bilirubin Negative (Negative) Urine Urobilinogen Normal mg/dL (Negative) Urine Leukocyte Esterase Negative /uL (Negative) Urine RBC <1 /hpf (0 - 3) Urine Microscopic WBC < 1 /HPF (0-3) Urine Squamous Epithelial Cells None seen /hpf (<5) Urine Bacteria None seen /hpf (None Seen) Urine Glucose 4+ mg/dL (Normal) H Labs and/or images reviewed: Labs reviewed by me, Image(s) reviewed by me Assessment/Plan Assessment/Plan Impression: -diabetic ketoacidosis -juvenile diabetes -medication noncompliance -obesity -sirs without organ dysfunction Plan: Events: Patient now back in diabetic ketoacidosis. Patient's anion gap was increasing yesterday evening without appropriate intervention by covering hospitalist. Today anion gap is 22. -normal saline 1 L bolus followed by normal saline at 150 mL/hour -repeat BMP at 1500 -antiemetics -q.4 Accu-Cheks coverage with moderate scale. Continue Lantus. Total time spent with patient discussing and formulating plan of care: 35 minutes. This medical document was created using an electronic medical record system with [employer] dictation system. Although this document has been carefully reviewed, there may still be some phonetic and typographical errors. These areas are purely typographical due to imperfections of the software programs, and do not reflect any compromise in the patient's medical care. Plan discussed with: Patient, Other (RN, Mother) My Orders Orders - JUDITH WATTERS NP Procedure Category Date Status Time Sodium Chloride 0.9% PHA 07/16/24 In Process 09:00 Glucose Blood PHA 07/16/24 In Process (Accu-Chek Comfort 12:00 Insulin R (Human) PHA 07/16/24 In Process (Insulin R) 12:00 Dextrose 50% Syringe PHA 07/16/24 In Process 09:00 Basic Metabolic Panel LAB 07/16/24 Logged 15:00 Sodium Chloride 0.9% PHA 07/16/24 In Process 09:00 Metoclopramide PHA 07/16/24 Logged Injection (Reglan 09:30 Npo (Nothing By DIET 07/16/24 Transmitted Mouth) Diet Breakfast Morphine Sulfate PHA 07/16/24 Logged Injection 09:30 Date of Service: Jul 16, 2024 Billing Provider: JUDITH WATTERS NP Common Visit Codes: [id number] CARE 30-74 MIN JUDITH WATTERS NP Jul 16, 2024 09:25
[2024-07-16] MEDS: SODIUM CHLORIDE 0.9% 1,000 ML IV ONE (09:29)
[2024-07-16] MEDS: SODIUM CHLORIDE 0.9% 1,000 ML IV SCH (09:29)
[2024-07-16] MEDS: INSULIN DRIP 100 UNIT/100ML 100 ML IV SCH (10:29)
[2024-07-16] MEDS: METOCLOPRAMIDE HCL 5MG/ml INJ 2ml VIAL IV PRN (10:55)
[2024-07-16] MEDS: MORPHINE SULFATE INJ 2 MG/ml SYRG IV PRN (10:55)
[2024-07-16] MEDS ORDERED: InsuLIN REG 1unit/0.01ml Soln (100units/ml) SC SCH (12:00)
[2024-07-16] MEDS ORDERED: ACCU-CHEK COMFORT CURVE STRIP VI SCH (12:00)
[2024-07-16] MEDS: HYDROmorphone HCL 2 MG/ML VL/or syr IV ONE (13:24)
[2024-07-16] MEDS: ONDANSETRON HCL 4 MG/2 ML VIAL IV PRN (13:25)
[2024-07-16 15:14] LABS: Sodium 139 mmol/L (136-145)
[2024-07-16 15:15] LABS: Anion Gap 13 (5-15)
[2024-07-16 15:20] LABS: BUN/Creatinine Ratio 7.8 (10.0-20.0)
[2024-07-16 15:22] LABS: Blood Urea Nitrogen 7 mg/dL (9-23); Carbon Dioxide 18 mmol/L (20-31); Chloride 108 mmol/L (98-107); Glucose 190 mg/dL (74-106)
--- NOTE | 2024-07-16 15:47 | DVH ---
EXAM: XY KUB ABDOMEN SINGLE VIEW HISTORY: ABDOMINAL PAIN COMPARISON: None TECHNIQUE: Single AP of the abdomen and pelvis was obtained. Findings: Frontal view of the abdomen demonstrates a nonobstructive bowel gas pattern. No visualized renal calc cathleen. There is no evidence of an acute fracture, dislocation, blastic, or lytic lesions. The visualized portions of the lung bases are unremarkable. No radiopaque foreign bodies. No superficial soft tissue abnormalities. Impression: 1. Nonobstructive bowel gas pattern.
[2024-07-16] MEDS: FOLIC ACID 1 MG, MAGNESIUM SULF SDV 50% 8 MEQ, MULTIPLE VITAMIN 10 ML, THIAMINE INJ 100... INJ SCH (17:54)
[2024-07-17] VITALS (40 sets, daily range): BP systolic 99–162; BP diastolic 57–93; PULSE 51–86; RESP 10–31; TEMP 97.6–98.8; O2SAT 86–100
--- NOTE | 2024-07-17 11:27 | DVHPN2 ---
Subjective Nausea and vomiting Reviewed: Care Plan, H&P, Labs, Medications Changes from previous H/P or p: No Changes General: Per HPI Objective Vitals Vital Signs Date Time Temp Pulse Resp B/P (MAP) Pulse Ox O2 Delivery O2 Flow Rate FiO2 07/17/24 08:00 98.8 64 18 151/83 (105) 97 98.8 07/17/24 08:00 Room Air* 0 21 Intake/Output Intake and Output 07/17/24 07:00 Intake Total 3278.938 ml Output Total 1125 ml Balance 2153.938 ml IV Total 3278.938 ml Output Urine Total 1125 ml # Voids 6 General Appearance: Alert, Oriented X3, Cooperative, Other (Obese) HEENT: Atraumatic, PERRLA, EOMI Lungs: Clear to auscultation, Normal air movement Cardiovascular: Normal S1, Normal S2 Abdomen: Normal bowel sounds, Soft, No tenderness, No hepatospenomegaly Musculoskeletal: Normal sensory function, Normal motor function Neuro: Normal gait, Normal speech Skin: Dry, Intact Psych/Mental Status: Mental status NL, Mood NL Medications Current Medications Medications Dose Ordered Sig/Simone Route Start Time Stop Time Status Last Admin Dose Admin Nitroglycerin 0.4 mg Q5MINP PRN SL 07/14/24 21:45 Morphine Sulfate 2 mg Q30M PRN IV 07/14/24 21:45 Insulin Glargine 15 units DAILY SC 07/15/24 10:00 07/17/24 09:04 15 UNITS Sodium Chloride 1,000 ml @ 150 mls/hr Q6H40M IV 07/16/24 09:00 07/17/24 09:39 150 MLS/HR Metoclopramide HCl 10 mg Q8HPRN PRN IV 07/16/24 09:30 07/17/24 05:49 10 MG Morphine Sulfate 1 mg Q4HP PRN IV 07/16/24 09:30 07/17/24 04:04 1 MG Dextrose 50 ml UD PRN IV 07/16/24 09:30 Ondansetron HCl 4 mg Q6HPRN PRN IV 07/16/24 13:00 07/17/24 01:32 4 MG Folic Acid 1 mg/ Magnesium Sulfate 8 meq/ Multivitamins 10 ml/Thiamine HCl 100 mg/Sodium Chloride 1,013.2 ml @ 126.247 mls/hr DAILY@1800 INJ 07/16/24 18:00 07/16/24 17:54 126.247 MLS/HR Diagnostic Test (Pha) 1 strip IQ4HR 07/17/24 12:00 UNV Insulin Human Regular IQ4HR SC 07/17/24 12:00 UNV Dextrose 50 ml UD PRN IV 07/17/24 11:30 UNV Pantoprazole Sodium 40 mg DAILY IV 07/17/24 11:30 UNV Sucralfate 1 gm BID@0600,2200 PO 07/17/24 22:00 UNV Laboratory Results Laboratory Tests 07/14/24 19:30 07/16/24 14:45 Chemistry Test 07/16/24 14:45 Calcium Level 10.0 mg/dL (8.7-10.4) Urinalysis Test 07/15/24 05:30 Urine Color Light-yellow (Yellow) Urine Clarity Clear (Clear) Urine pH 5.0 (5.0-9.0) Urine Specific [place] 1.021 (1.001-1.035) Urine Protein Negative (Negative) Urine Ketones 4+ (Negative) H Urine Blood Negative /uL (Negative) Urine Nitrite Negative (Negative) Urine Bilirubin Negative (Negative) Urine Urobilinogen Normal mg/dL (Negative) Urine Leukocyte Esterase Negative /uL (Negative) Urine RBC <1 /hpf (0 - 3) Urine Microscopic WBC < 1 /HPF (0-3) Urine Squamous Epithelial Cells None seen /hpf (<5) Urine Bacteria None seen /hpf (None Seen) Urine Glucose 4+ mg/dL (Normal) H Labs and/or images reviewed: Labs reviewed by me, Image(s) reviewed by me Assessment/Plan Assessment/Plan Impression: -diabetic ketoacidosis -juvenile diabetes -medication noncompliance -obesity -sirs without organ dysfunction Plan: Events: awaiting a.m. labs. Blood sugar under 200 for over 12 hours continuously. Continues to have nausea. Discussion made with the patient regarding positive cannabis use as well as alcohol use which can be contributing factors to possible withdrawal symptoms. Patient was started on banana bag yesterday. -Continue banana bag daily -change to q.4 Accu-Chek coverage with Lantus -start p.o. intake -antiemetics -PPI, Carafate -transferred to Medical/Surgical unit Total time spent with patient discussing and formulating plan of care: 35 minutes. This medical document was created using an electronic medical record system with [employer] dictation system. Although this document has been carefully reviewed, there may still be some phonetic and typographical errors. These areas are purely typographical due to imperfections of the software programs, and do not reflect any compromise in the patient's medical care. Plan discussed with: Patient, Other (Rn) My Orders Orders - JUDITH WATTERS NP Procedure Category Date Status Time Mrsa Screen NITZA 07/16/24 In Process 11:46 Ondansetron Hcl PHA 07/16/24 In Process (Zofran) 13:00 Kub Abdomen Single XY 07/16/24 Resulted View 13:00 Folic Acid... PHA 07/16/24 In Process 18:00 Basic Metabolic Panel LAB 07/17/24 Logged 10:38 Magnesium LAB 07/17/24 Logged 10:38 Phosphorus LAB 07/17/24 Logged 10:38 Complete Blood Count LAB 07/17/24 Logged 11:17 Consistent DIET 07/17/24 Transmitted Carb(Ccho)Diabetes Lunch Transfer Orders XFER 07/17/24 Transmitted 11:18 Transfer Orders XFER 07/17/24 Transmitted 11:18 Glucose Blood PHA 07/17/24 Logged (Accu-Chek Comfort 12:00 Insulin R (Human) PHA 07/17/24 Logged (Insulin R) 12:00 Dextrose 50% Syringe PHA 07/17/24 Logged 11:30 Pantoprazole PHA 07/17/24 Logged (Protonix) 11:30 Sucralfate Susp PHA 07/17/24 Logged (Carafate Susp) 22:00 Date of Service: Jul 17, 2024 Billing Provider: JUDITH WATTERS NP Common Visit Codes: [id number] INP/OBS CARE(HIGH) JUDITH WATTERS NP Jul 17, 2024 11:27
[2024-07-17] MEDS: PANTOPRAZOLE 40 MG/10 ML VIAL INJ IV SCH (11:30)
[2024-07-17] MEDS ORDERED: DEXTROSE (50%) 50ML SYRG IV PRN (11:30)
[2024-07-17 11:58] LABS: Potassium 3.8 mmol/L (3.5-5.1); Sodium 143 mmol/L (136-145)
[2024-07-17 11:59] LABS: Anion Gap 15 (5-15); Calcium 9.9 mg/dL (8.7-10.4)
[2024-07-17] MEDS: InsuLIN REG 1unit/0.01ml Soln (100units/ml) SC SCH (12:00)
[2024-07-17] MEDS: ACCU-CHEK COMFORT CURVE STRIP VI SCH (12:02)
[2024-07-17 12:04] LABS: Blood Urea Nitrogen 8 mg/dL (9-23); Carbon Dioxide 19 mmol/L (20-31); Chloride 109 mmol/L (98-107); Glucose 170 mg/dL (74-106)
[2024-07-17 12:05] LABS: Magnesium 2.1 mg/dL (1.6-2.6)
[2024-07-17 12:08] LABS: Phosphorus 1.9 mg/dL (2.4-5.1)
[2024-07-17 12:14] LABS: BUN/Creatinine Ratio 8.1 (10.0-20.0)
[2024-07-17] MEDS: POTASSIUM PHOSPHATE 22 MEQ in SODIUM CHL 0.9% 100 ML IV ONE (14:43)
[2024-07-17 16:22] LABS: Basophils # (auto) 0 10 ^3/uL (0-0.2); Basophils % (auto) 0.2 % (0.0-2.0); Eosinophils # (auto) 0 10 ^3/uL (0-0.8); Hematocrit 43.8 % (41.0-53.0); Hemoglobin 14.8 g/dL (13.5-17.5); Lymphocytes % (auto) 7.6 % (10.0-50.0); Mean Corpuscular Hgb Conc. 33.7 g/dL (32.0-36.0); Mean Corpuscular Volume 82.9 fL (80.0-100.0); Monocytes # (auto) 0.5 10 ^3/uL (0-1.3); Monocytes % (auto) 4.1 % (0.0-12.0); Neutrophils # (auto) 11.5 10 ^3/uL (1.6-8.6); Neutrophils % (auto) 88.1 % (37.0-80.0); Platelet Count (auto) 342 10^3/uL (140-450); Red Blood Cells 5.28 10^6/uL (4.5-5.90); Red Cell Distribution Width 13.7 % (11.8-14.3); White Blood Cell 13.1 10^3/uL (4.4-10.8)
[2024-07-17] MEDS: SUCRALFATE 1 GM/10 ML ORAL SUSP PO SCH (21:24)
[2024-07-17] MEDS: MORPHINE SULFATE INJ 2 MG/ml SYRG IV PRN (21:26)
[2024-07-18] VITALS (7 sets, daily range): BP systolic 136–161; BP diastolic 70–90; PULSE 64–86; RESP 16–20; TEMP 97.6–99.1; O2SAT 97–100
--- NOTE | 2024-07-18 10:35 | DVHPN2 ---
Subjective Nausea and vomiting Reviewed: Care Plan, H&P, Labs, Medications Changes from previous H/P or p: No Changes General: Per HPI Objective Vitals Vital Signs Date Time Temp Pulse Resp B/P (MAP) Pulse Ox O2 Delivery O2 Flow Rate FiO2 07/18/24 09:00 97.6 69 16 155/71 (99) 100 97.6 07/18/24 08:00 Room Air* 0 21 Intake/Output Intake and Output 07/18/24 07:00 Intake Total 2485.5 ml Balance 2485.5 ml Intake Oral 1550 ml IV Total 935.5 ml # Voids 4 General Appearance: Alert, Oriented X3, Cooperative, Other (Obese) HEENT: Atraumatic, PERRLA, EOMI Lungs: Clear to auscultation, Normal air movement Cardiovascular: Normal S1, Normal S2 Abdomen: Normal bowel sounds, Soft, No tenderness, No hepatospenomegaly Musculoskeletal: Normal sensory function, Normal motor function Neuro: Normal gait, Normal speech Skin: Dry, Intact Psych/Mental Status: Mental status NL, Mood NL Medications Current Medications Medications Dose Ordered Sig/Simone Route Start Time Stop Time Status Last Admin Dose Admin Nitroglycerin 0.4 mg Q5MINP PRN SL 07/14/24 21:45 Morphine Sulfate 2 mg Q30M PRN IV 07/14/24 21:45 07/18/24 05:44 2 MG Insulin Glargine 15 units DAILY SC 07/15/24 10:00 07/17/24 09:04 15 UNITS Metoclopramide HCl 10 mg Q8HPRN PRN IV 07/16/24 09:30 07/17/24 12:53 10 MG Morphine Sulfate 1 mg Q4HP PRN IV 07/16/24 09:30 07/17/24 14:45 1 MG Dextrose 50 ml UD PRN IV 07/16/24 09:30 Cancel Ondansetron HCl 4 mg Q6HPRN PRN IV 07/16/24 13:00 07/18/24 05:44 4 MG Folic Acid 1 mg/ Magnesium Sulfate 8 meq/ Multivitamins 10 ml/Thiamine HCl 100 mg/Sodium Chloride 1,013.2 ml @ 126.247 mls/hr DAILY@1800 INJ 07/16/24 18:00 07/17/24 18:08 126.247 MLS/HR Diagnostic Test (Pha) 1 strip IQ4HR 07/17/24 12:00 07/18/24 08:08 1 STRIP Insulin Human Regular IQ4HR SC 07/17/24 12:00 07/18/24 08:15 3 UNITS Dextrose 50 ml UD PRN IV 07/17/24 11:30 Pantoprazole Sodium 40 mg DAILY IV 07/17/24 11:30 07/17/24 11:30 40 MG Sucralfate 1 gm BID@0600,2200 PO 07/17/24 22:00 07/18/24 06:08 1 GM Laboratory Results Laboratory Tests 07/17/24 11:24 07/17/24 15:54 Chemistry Test 07/17/24 11:24 Calcium Level 9.9 mg/dL (8.7-10.4) Magnesium Level 2.1 mg/dL (1.6-2.6) Phosphorus Level 1.9 mg/dL (2.4-5.1) L Urinalysis Test 07/15/24 05:30 Urine Color Light-yellow (Yellow) Urine Clarity Clear (Clear) Urine pH 5.0 (5.0-9.0) Urine Specific [place] 1.021 (1.001-1.035) Urine Protein Negative (Negative) Urine Ketones 4+ (Negative) H Urine Blood Negative /uL (Negative) Urine Nitrite Negative (Negative) Urine Bilirubin Negative (Negative) Urine Urobilinogen Normal mg/dL (Negative) Urine Leukocyte Esterase Negative /uL (Negative) Urine RBC <1 /hpf (0 - 3) Urine Microscopic WBC < 1 /HPF (0-3) Urine Squamous Epithelial Cells None seen /hpf (<5) Urine Bacteria None seen /hpf (None Seen) Urine Glucose 4+ mg/dL (Normal) H Microbiology Microbiology Date/Time Source Procedure Growth Status 07/16/24 11:30 Nose MRSA Screen - Final Complete Labs and/or images reviewed: Labs reviewed by me, Image(s) reviewed by me Assessment/Plan Assessment/Plan Impression: -diabetic ketoacidosis -juvenile diabetes -medication noncompliance -obesity -sirs without organ dysfunction -persistent leukocytosis probably secondary to nausea. Pt afebrile. Plan: Events: Patient continues to report having nausea and vomiting. DKA has been resolved for the past 24 hours. Patient states he was tolerating Jell-O and water, but says he does have intermittent nausea. Patient was on antiemetics x2. -continue banana bag daily. -GI consultation -KUB ordered. Unremarkable -change to q.4 Accu-Chek coverage with Lantus -start p.o. intake -antiemetics -PPI, Carafate Total time spent with patient discussing and formulating plan of care: 35 minutes. This medical document was created using an electronic medical record system with [employer] dictation system. Although this document has been carefully reviewed, there may still be some phonetic and typographical errors. These areas are purely typographical due to imperfections of the software programs, and do not reflect any compromise in the patient's medical care. Plan discussed with: Patient, Other (RN) My Orders Orders - JUDITH WATTERS NP Procedure Category Date Status Time Consistent DIET 07/17/24 Transmitted Carb(Ccho)Diabetes Lunch Transfer Orders XFER 07/17/24 Transmitted 11:18 Transfer Orders XFER 07/17/24 Transmitted 11:18 Glucose Blood PHA 07/17/24 In Process (Accu-Chek Comfort 12:00 Insulin R (Human) PHA 07/17/24 In Process (Insulin R) 12:00 Dextrose 50% Syringe PHA 07/17/24 In Process 11:30 Pantoprazole PHA 07/17/24 In Process (Protonix) 11:30 Sucralfate Susp PHA 07/17/24 In Process (Carafate Susp) 22:00 * Gi Dvh Control Clerk Repairs CONS 07/18/24 Transmitted 10:23 Erythrocyte LAB 07/18/24 Logged Sedimentation Rate 10:28 C-Reactive Protein LAB 07/18/24 Logged 10:28 Date of Service: Jul 18, 2024 Billing Provider: JUDITH WATTERS NP Common Visit Codes: [id number] INP/OBS CARE(HIGH) JUDITH WATTERS NP Jul 18, 2024 10:35
--- NOTE | 2024-07-18 12:45 | DVHINCON2 ---
Date of service: Jul 18, 2024 Reason for Consultation Nausea vomiting abdominal pain History of Present Illness This 24-year-old male presented to the emergency room with complaints of ab dominal pain nausea vomiting patient has been having constant pain/since and nausea and unable to keep anything down so over the last since last Saturday. The pain was abdomen in epigastric as well as both upper quadrants enzymes times slightly ulcer diffuse. Has got history of diabetes patient has been also having some back pain arthritis and having taking pain medications including NSAIDs etc. The patient also had one or two episodes of hematemesis no melena no diarrhea No history of any ulcer disease Past Medical History Diabetes hyperlipidemia Past Surgical History None Family History: Diabetes mellitus G8 MOTHER Family History Noncontributory Social History Smokes marijuana occasional drinking Allergies: Coded Allergies: NO KNOWN ALLERGIES (Unverified , 06/01/16) Home Meds Active Scripts Ondansetron (Zofran) 4 Mg Tab, 4 MG PO TID PRN for 3 Days, #9 TAB Prov:DEAN MCKEON MD 08/25/21 Reported Medications Fluoxetine Hcl (Fluoxetine Hcl) 10 Mg Cap, 10 MG PO DAILY for 30 Days, MG 07/16/24 Atorvastatin Calcium (ATORVASTATIN CALCIUM) 10 Mg Tab, 1 TAB PO DAILY, #30 TAB 5 Refills 07/16/24 Discontinued Reported Medications Atorvastatin Calcium (Lipitor) 20 Mg Tab, 1 TAB PO DAILY, #90 TAB 1 Refill 07/15/24 Current Medications Current Medications Medications (Trade) Dose Ordered Sig/Simone Route PRN Reason Start Time Stop Time Status Last Admin Sucralfate (Carafate Susp) 1 gm BID@0600,2200 PO 07/17/24 22:00 07/18/24 06:08 Review of Systems Noncontributing Vital Signs Vital Signs Date Time Temp Pulse Resp B/P (MAP) Pulse Ox O2 Delivery O2 Flow Rate FiO2 07/18/24 09:00 97.6 69 16 155/71 (99) 100 97.6 07/18/24 08:00 Room Air* 0 21 Physical Exam Originally built and nourished male in acute distress but chronically ill looking Vitals normal HEENT examination no pallor no icterus Lungs are clear Cardiovascular unremarkable Abdomen soft mild tenderness in the epigastrium and both upper quadrants no rigidity no guarding no masses bowel sounds normal Extremities no edema Neuro grossly intact Labs/Diagnostic Data Labs Test 2/1/25 11:31 07/17/24 15:54 07/17/24 11:24 07/15/24 19:08 Range/Units POC Glucose 172 H 70-106 mg/dl White Blood Count 13.1 H 4.4-10.8 10^3/uL Red Blood Count 5.28 4.5-5.90 10^6/uL Hemoglobin 14.8 13.5-17.5 g/dL Hematocrit 43.8 # 41.0-53.0 % Mean Corpuscular Volume 82.9 80.0-100.0 fL Mean Corpuscular Hemoglobin 28.0 28.0-32.0 pg Mean Corpuscular Hemoglobin Concent 33.7 32.0-36.0 g/dL Red Cell Distribution Width 13.7 11.8-14.3 % Platelet Count 342 140-450 10^3/uL Mean Platelet Volume 8.3 6.9-10.8 fL Neutrophils (%) (Auto) 88.1 H 37.0-80.0 % Lymphocytes (%) (Auto) 7.6 L 10.0-50.0 % Monocytes (%) (Auto) 4.1 0.0-12.0 % Eosinophils (%) (Auto) 0.0 0.0-7.0 % Basophils (%) (Auto) 0.2 0.0-2.0 % Neutrophils # (Auto) 11.5 H 1.6-8.6 10 ^3/uL Lymphocytes # (Auto) 1.0 0.4-5.4 10 ^3/uL Monocytes # (Auto) 0.5 0-1.3 10 ^3/uL Eosinophils # (Auto) 0 0-0.8 10 ^3/uL Basophils # (Auto) 0 0-0.2 10 ^3/uL Nucleated Red Blood Cells 0.0 % Sodium Level 143 136-145 mmol/L Potassium Level 3.8 3.5-5.1 mmol/L Chloride Level 109 H 98-107 mmol/L Carbon Dioxide Level 19 L 20-31 mmol/L Anion Gap 15 5-15 Blood Urea Nitrogen 8 L 9-23 mg/dL Creatinine 0.99 0.700-1.30 mg/dL Glomerular Filtration Rate Calc 108 >90 mL/min BUN/Creatinine Ratio 8.1 L 10.0-20.0 Serum Glucose 170 H 74-106 mg/dL Calcium Level 9.9 8.7-10.4 mg/dL Phosphorus Level 1.9 L 2.4-5.1 mg/dL Magnesium Level 2.1 1.6-2.6 mg/dL Hemoglobin A1c 8.0 H <5.7 % A1C Test 07/15/24 05:30 07/14/24 21:38 07/14/24 21:15 07/14/24 20:40 Range/Units Urine Color Light-yellow Yellow Urine Clarity Clear Clear Urine pH 5.0 5.0-9.0 Urine Specific [place] 1.021 1.001-1.035 Urine Protein Negative Negative Urine Ketones 4+ H Negative Urine Blood Negative Negative /uL Urine Nitrite Negative Negative Urine Bilirubin Negative Negative Urine Urobilinogen Normal Negative mg/dL Urine Leukocyte Esterase Negative Negative /uL Urine RBC <1 0 - 3 /hpf Urine Microscopic WBC < 1 0-3 /HPF Urine Squamous Epithelial Cells None seen <5 /hpf Urine Bacteria None seen None Seen /hpf Urine Glucose 4+ H Normal mg/dL Urine Opiates Screen Neg NEGATIVE Urine Fentanyl Screen Neg NEGATIVE Urine Barbiturates Screen Neg NEGATIVE Urine Phencyclidine Screen Neg NEGATIVE Urine Amphetamines Screen Neg NEGATIVE Urine Benzodiazepines Screen Neg NEGATIVE Urine Cocaine Screen Neg NEGATIVE Urine Cannabinoids Screen Pos NEGATIVE Blood Gas Specimen Type Arterial Blood Gas Sample Site Right radial Blood Gas Patient Temperature 37.0 Arterial Blood Date Drawn Arterial Blood pH 7.323 L 7.350-7.450 Arterial Blood Partial Pressure CO2 23.5 L 35.0-48.0 mmHg Arterial Blood Partial Pressure O2 99.7 83.0-108.0 mmHg Arterial Blood HCO3 11.9 L 21.0-28.0 mmol/L Arterial Blood Oxygen Saturation 97.5 94.0-98.0 % Arterial Blood Base Excess -11.7 L -2.0-3.0 mmol/L Arterial Blood Oxyhemoglobin 96.0 94.0-98.0 % Arterial Blood Carboxyhemoglobin 0.7 0.5-1.5 % Arterial Blood Methemoglobin 0.8 0.0-1.5 % Miko Test Yes Blood Gas Total Hemoglobin 17.00 13.5-17.5 g/dL Blood Gas Modality Room air FiO2 % 21.0 Specimen Drawn By Deanna gilbert internet marketing coordinator Blood Gas Critical Value Read Back yes Blood Gas Notified Time [id number] Serum Osmolality 318 H 278-298 mOsm/kg Troponin I High Sensitivity 10 </=54 ng/L Beta-Hydroxybutyric Acid > 4.500 H < 0.4 mmol/L Test 07/14/24 19:30 Range/Units Prothrombin Time 11.4 9.3-11.8 sec Prothrombin Time INR 1.08 0.9-1.15 Activated Partial Thromboplast Time 25.0 24.5-34.5 SEC D-Dimer, Quantitative < 0.19 0.0-0.49 mg/L FEU Total Bilirubin 1.2 H 0.2-1.0 mg/dL Aspartate Amino Transferase (AST) 17 13-40 U/L Alanine Aminotransferase (ALT) 25 7-40 U/L Alkaline Phosphatase 148 H 46-116 U/L B-Type Natriuretic Peptide 24.46 0-100 pg/mL Total Protein 7.6 5.7-8.2 g/dL Albumin 5.2 H 3.2-4.8 g/dL Microbiology Date/Time Source Procedure Growth Status 07/16/24 11:30 Nose MRSA Screen - Final Complete Assessment Statistics year old with a abdominal pain nausea vomiting unable to keep any food down patient has history of diabetes also history of NSAIDs smokes marijuana and takes alcohol mildly Possible gastritis possible ulcer possible gastroparesis other pathology including pancreatitis or marijuana effect also can not be excluded Plan/Recommendation I will recommend get a lipase level EGD evaluation because of the persistent symptoms to rule out any ulcers from NSAIDs or gastroparesis or other pathology especially with the persistent nausea vomiting and hematemesis. Thank you Dr. Castillo Plan discussed with: Patient SUZANNE CASTILLO MD Jul 18, 2024 12:45
[2024-07-18 13:56] LABS: Erythrocyte Sedimentation Rate 12 mm/hr (0-20)
[2024-07-19] VITALS (8 sets, daily range): BP systolic 110–135; BP diastolic 55–74; PULSE 62–79; RESP 16–20; TEMP 98–98.4; O2SAT 94–98
[2024-07-19] MEDS ORDERED: PROPOFOL 10 MG/ML 20 ML IV ONE (10:27)
--- NOTE | 2024-07-19 10:56 | DVHOP2 ---
Operative Report DATE OF PROCEDURE: 07/19/24 INDICATIONS FOR THE PROCEDURE: Persistent nausea vomiting heartburn PROCEDURE PERFORMED: 1. Esophagogastroduodenoscopy and biopsy POSTOPERATIVE DIAGNOSIS: Possible candidiasis of the oropharynx with pseudomembranous patches Esophagitis possibly candidiasis of the distal esophagus with pseudomembranous patches Mild antral gastritis No large ulcers or bleeding INFORMED CONSENT: The risks and benefits and alternatives were explained to the patient and informed consent was obtained. PROCEDURE IN DETAIL: The patient was kept NPO after midnight. Procedure was done under MAC . Olympus gastroscope was passed through the oropharynx into the stomach and the duodenum, and the findings were as follows. Oropharynx showed in the close to the vocal cords pseudomembranous patches possibly suggestive of candidiasis Esophagus: In the distal esophagus in the distal 4-5 cm there were linear pseudomembranous patches slightly friable and peeling of easily suggestive of candidal esophagitis No bleeding No Esophageal stricture Stomach: Fundus: Normal Body and antrum Erythematous streaks suggestive of gastritis biopsies taken to ensure there is no H pylori or other pathology Pylorus normal Duodenum Normal Endoscopic impression Esophagitis of the distal esophagus possibly candidal Possible candidiasis of the distal oropharynx Mild gastritis Suggestions Await the biopsy results Treat with Diflucan And Mycostatin suspension or Mycelex Troches We will also treat with PPIs Await the H pylori results Feeling better can advance the diet slowly and and discharge if able to tolerate food in the next 24-[address] Eddy for asking me to take part in the care of this pleasant patient SUZANNE Che MD Jul 19, 2024 10:56
[2024-07-19] MEDS ORDERED: NYSTATIN (MOUTH-THROAT) 500,000 UNITS/5 ML SUSP MT SCH (12:00)
[2024-07-19] MEDS: FLUCONAZOLE 100 MG TAB PO ONE (13:18)
[2024-07-19] MEDS: NYSTATIN (MOUTH-THROAT) 500,000 UNITS/5 ML SUSP MT SCH (13:18)
--- NOTE | 2024-07-19 14:33 | DVHPN2 ---
Subjective Nausea and vomiting Reviewed: Care Plan, H&P, Labs, Medications Changes from previous H/P or p: No Changes General: Per HPI Objective Vitals Vital Signs Date Time Temp Pulse Resp B/P (MAP) Pulse Ox O2 Delivery O2 Flow Rate FiO2 07/19/24 13:00 98.0 62 19 135/74 (94) 98 98.0 07/19/24 10:45 Room Air 0 07/18/24 20:00 21 Intake/Output Intake and Output 07/19/24 07:00 Intake Total 1510 ml Balance 1510 ml Intake Oral 1510 ml # Voids 6 General Appearance: Alert, Oriented X3, Cooperative, Other (Obese) HEENT: Atraumatic, PERRLA, EOMI Lungs: Clear to auscultation, Normal air movement Cardiovascular: Normal S1, Normal S2 Abdomen: Normal bowel sounds, Soft, No tenderness, No hepatospenomegaly Musculoskeletal: Normal sensory function, Normal motor function Neuro: Normal gait, Normal speech Skin: Dry, Intact Psych/Mental Status: Mental status NL, Mood NL Medications Current Medications Medications Dose Ordered Sig/Simone Route Start Time Stop Time Status Last Admin Dose Admin Nitroglycerin 0.4 mg Q5MINP PRN SL 07/14/24 21:45 Morphine Sulfate 2 mg Q30M PRN IV 07/14/24 21:45 07/18/24 05:44 2 MG Metoclopramide HCl 10 mg Q8HPRN PRN IV 07/16/24 09:30 07/18/24 20:00 10 MG Morphine Sulfate 1 mg Q4HP PRN IV 07/16/24 09:30 07/18/24 20:01 1 MG Dextrose 50 ml UD PRN IV 07/16/24 09:30 Cancel Ondansetron HCl 4 mg Q6HPRN PRN IV 07/16/24 13:00 07/19/24 13:17 4 MG Folic Acid 1 mg/ Magnesium Sulfate 8 meq/ Multivitamins 10 ml/Thiamine HCl 100 mg/Sodium Chloride 1,013.2 ml @ 126.247 mls/hr DAILY@1800 INJ 07/16/24 18:00 07/18/24 17:23 126.247 MLS/HR Diagnostic Test (Pha) 1 strip IQ4HR 07/17/24 12:00 07/19/24 12:00 1 STRIP Insulin Human Regular IQ4HR SC 07/17/24 12:00 07/19/24 13:28 3 UNITS Dextrose 50 ml UD PRN IV 07/17/24 11:30 Pantoprazole Sodium 40 mg DAILY IV 07/17/24 11:30 07/19/24 08:43 40 MG Sucralfate 1 gm BID@0600,2200 PO 07/17/24 22:00 07/19/24 05:50 1 GM Fluconazole 200 mg DAILY PO 07/20/24 10:00 Insulin Glargine 20 units DAILY SC 07/20/24 10:00 Nystatin 5 ml QID MT 07/19/24 12:00 07/19/24 13:18 5 ML Laboratory Results Laboratory Tests 07/17/24 11:24 07/17/24 15:54 Urinalysis Test 07/15/24 05:30 Urine Color Light-yellow (Yellow) Urine Clarity Clear (Clear) Urine pH 5.0 (5.0-9.0) Urine Specific [place] 1.021 (1.001-1.035) Urine Protein Negative (Negative) Urine Ketones 4+ (Negative) H Urine Blood Negative /uL (Negative) Urine Nitrite Negative (Negative) Urine Bilirubin Negative (Negative) Urine Urobilinogen Normal mg/dL (Negative) Urine Leukocyte Esterase Negative /uL (Negative) Urine RBC <1 /hpf (0 - 3) Urine Microscopic WBC < 1 /HPF (0-3) Urine Squamous Epithelial Cells None seen /hpf (<5) Urine Bacteria None seen /hpf (None Seen) Urine Glucose 4+ mg/dL (Normal) H Microbiology Microbiology Date/Time Source Procedure Growth Status 07/16/24 11:30 Nose MRSA Screen - Final Complete Labs and/or images reviewed: Labs reviewed by me, Image(s) reviewed by me Assessment/Plan Assessment/Plan Impression: -diabetic ketoacidosis -juvenile diabetes -medication noncompliance -obesity -sirs without organ dysfunction -persistent leukocytosis probably secondary to nausea. Pt afebrile. Plan: Events: Patient had EGD today with noted Zahra esophagitis. Patient placed on nystatin swish and swallow 4 times a day as well as p.o. Diflucan. Discussion made with the patient. Discharge planning for tomorrow. -advanced to full liquid diet -GI consultation -KUB ordered. Unremarkable -change to q.4 Accu-Chek coverage with Lantus -start p.o. intake -antiemetics -PPI, Carafate Total time spent with patient discussing and formulating plan of care: 35 minutes. This medical document was created using an electronic medical record system with [employer] dictation system. Although this document has been carefully reviewed, there may still be some phonetic and typographical errors. These areas are purely typographical due to imperfections of the software programs, and do not reflect any compromise in the patient's medical care. Plan discussed with: Patient, Other (RN) My Orders Orders - JUDITH WATTERS NP Procedure Category Date Status Time Insulin Lantus PHA 07/20/24 In Process (Glargine) (Lantus) 10:00 Nystatin PHA 07/19/24 In Process (Mouth-Throat) 12:00 Full Liq Diet DIET 07/19/24 Transmitted Lunch Date of Service: Jul 19, 2024 Billing Provider: JUDITH WATTERS NP Common Visit Codes: [id number] INP/OBS CARE(HIGH) JUDITH WATTERS NP Jul 19, 2024 14:33
[2024-07-20 01:00] VITALS: BP 121/69; PULSE 69; RESP 18; TEMP 98.3; O2SAT 95
[2024-07-20 05:00] VITALS: BP 113/68; PULSE 66; RESP 19; TEMP 98.4; O2SAT 97
[2024-07-20 07:45] VITALS: PULSE 63; RESP 17; O2SAT 94
[2024-07-20] MEDS: FLUCONAZOLE 100 MG TAB PO SCH (08:15)
[2024-07-20 09:00] VITALS: BP 122/68; PULSE 63; RESP 20; TEMP 98.3; O2SAT 94
[2024-07-20] MEDS ORDERED: INSU1INJ19 SC (09:09)
[2024-07-20] MEDS ORDERED: INSU100I45 IJ (09:09)
[2024-07-20] MEDS ORDERED: LANC-347 XX (09:09)
[2024-07-20] MEDS ORDERED: BLOO1KIT60 XX (09:09)
[2024-07-20] MEDS ORDERED: FLUC150T38 PO (09:09)
--- NOTE | 2024-07-20 09:12 | DVHDS2 ---
Discharge Summary Date of Admission Jul 14, 2024 at 21:35 Date of Discharge: Jul 20, 2024 Admitting Diagnosis Diabetic ketoacidosis Labs/Diagnostic Data: Laboratory Results Test 07/20/24 08:04 07/18/24 12:08 07/17/24 15:54 07/17/24 11:24 POC Glucose 196 mg/dl (70-106) Erythrocyte Sedimentation Rate 12 mm/hr (0-20) C-Reactive Protein High Sensitivity 2.39 mg/dL (<1.0) White Blood Count 13.1 10^3/uL (4.4-10.8) Red Blood Count 5.28 10^6/uL (4.5-5.90) Hemoglobin 14.8 g/dL (13.5-17.5) Hematocrit 43.8 % (41.0-53.0) Mean Corpuscular Volume 82.9 fL (80.0-100.0) Mean Corpuscular Hemoglobin 28.0 pg (28.0-32.0) Mean Corpuscular Hemoglobin Concent 33.7 g/dL (32.0-36.0) Red Cell Distribution Width 13.7 % (11.8-14.3) Platelet Count 342 10^3/uL (140-450) Mean Platelet Volume 8.3 fL (6.9-10.8) Neutrophils (%) (Auto) 88.1 % (37.0-80.0) Lymphocytes (%) (Auto) 7.6 % (10.0-50.0) Monocytes (%) (Auto) 4.1 % (0.0-12.0) Eosinophils (%) (Auto) 0.0 % (0.0-7.0) Basophils (%) (Auto) 0.2 % (0.0-2.0) Neutrophils # (Auto) 11.5 10 ^3/uL (1.6-8.6) Lymphocytes # (Auto) 1.0 10 ^3/uL (0.4-5.4) Monocytes # (Auto) 0.5 10 ^3/uL (0-1.3) Eosinophils # (Auto) 0 10 ^3/uL (0-0.8) Basophils # (Auto) 0 10 ^3/uL (0-0.2) Nucleated Red Blood Cells 0.0 % Sodium Level 143 mmol/L (136-145) Potassium Level 3.8 mmol/L (3.5-5.1) Chloride Level 109 mmol/L (98-107) Carbon Dioxide Level 19 mmol/L (20-31) Anion Gap 15 (5-15) Blood Urea Nitrogen 8 mg/dL (9-23) Creatinine 0.99 mg/dL (0.700-1.30) Glomerular Filtration Rate Calc 108 mL/min (>90) BUN/Creatinine Ratio 8.1 (10.0-20.0) Serum Glucose 170 mg/dL (74-106) Calcium Level 9.9 mg/dL (8.7-10.4) Phosphorus Level 1.9 mg/dL (2.4-5.1) Magnesium Level 2.1 mg/dL (1.6-2.6) Test 07/15/24 19:08 07/15/24 05:30 07/14/24 21:38 07/14/24 21:15 Hemoglobin A1c 8.0 % A1C (<5.7) Urine Color Light-yellow (Yellow) Urine Clarity Clear (Clear) Urine pH 5.0 (5.0-9.0) Urine Specific [place] 1.021 (1.001-1.035) Urine Protein Negative (Negative) Urine Ketones 4+ (Negative) Urine Blood Negative /uL (Negative) Urine Nitrite Negative (Negative) Urine Bilirubin Negative (Negative) Urine Urobilinogen Normal mg/dL (Negative) Urine Leukocyte Esterase Negative /uL (Negative) Urine RBC <1 /hpf (0 - 3) Urine Microscopic WBC < 1 /HPF (0-3) Urine Squamous Epithelial Cells None seen /hpf (<5) Urine Bacteria None seen /hpf (None Seen) Urine Glucose 4+ mg/dL (Normal) Urine Opiates Screen Neg (NEGATIVE) Urine Fentanyl Screen Neg (NEGATIVE) Urine Barbiturates Screen Neg (NEGATIVE) Urine Phencyclidine Screen Neg (NEGATIVE) Urine Amphetamines Screen Neg (NEGATIVE) Urine Benzodiazepines Screen Neg (NEGATIVE) Urine Cocaine Screen Neg (NEGATIVE) Urine Cannabinoids Screen Pos (NEGATIVE) Blood Gas Specimen Type Arterial Blood Gas Sample Site Right radial Blood Gas Patient Temperature 37.0 Arterial Blood Date Drawn [id number] Arterial Blood pH 7.323 (7.350-7.450) Arterial Blood Partial Pressure CO2 23.5 mmHg (35.0-48.0) Arterial Blood Partial Pressure O2 99.7 mmHg (83.0-108.0) Arterial Blood HCO3 11.9 mmol/L (21.0-28.0) Arterial Blood Oxygen Saturation 97.5 % (94.0-98.0) Arterial Blood Base Excess -11.7 mmol/L (-2.0-3.0) Arterial Blood Oxyhemoglobin 96.0 % (94.0-98.0) Arterial Blood Carboxyhemoglobin 0.7 % (0.5-1.5) Arterial Blood Methemoglobin 0.8 % (0.0-1.5) Miko Test Yes Blood Gas Total Hemoglobin 17.00 g/dL (13.5-17.5) Blood Gas Modality Room air FiO2 % 21.0 Specimen Drawn By Deanna gilbert rrt Blood Gas Critical Value Read Back yes Blood Gas Notified Time [id number] Serum Osmolality 318 mOsm/kg (278-298) Test 07/14/24 20:40 07/14/24 19:30 Troponin I High Sensitivity 10 ng/L (</=54) Beta-Hydroxybutyric Acid > 4.500 mmol/L (< 0.4) Prothrombin Time 11.4 sec (9.3-11.8) Prothrombin Time INR 1.08 (0.9-1.15) Activated Partial Thromboplast Time 25.0 SEC (24.5-34.5) D-Dimer, Quantitative < 0.19 mg/L FEU (0.0-0.49) Total Bilirubin 1.2 mg/dL (0.2-1.0) Aspartate Amino Transferase (AST) 17 U/L (13-40) Alanine Aminotransferase (ALT) 25 U/L (7-40) Alkaline Phosphatase 148 U/L (46-116) B-Type Natriuretic Peptide 24.46 pg/mL (0-100) Total Protein 7.6 g/dL (5.7-8.2) Albumin 5.2 g/dL (3.2-4.8) Other Laboratory Tests 07/17/24 15:54 07/17/24 11:24 Brief Hx & Hospital Course: History of Present Illness 24-year-old male presents for evaluation of nausea and vomiting. Patient presents with a three day history of worsening nausea and vomiting. He also reports diffuse abdominal pain. Patient is noncompliant with his insulin regimen for diabetes mellitus. Denies fever or chills. He also reports palpitations. Other acute complaints reported. Course of hospitalization: Patient was transitioned from insulin drip to Lantus and regular insulin sliding scale. Despite DKA being improved, patient she is going to have nausea and vomiting as well as some epigastric pain. GI consultation was obtained with the patient undergoing EGD with findings of esophageal candidiasis. Patient was started on oral Diflucan as well as nystatin swish and swallow. Patient was blood sugars continue to be improved as is his symptoms of nausea and vomiting. Patient was states that he lost insurance when he turned 24 and has not applied for medical. Patient was states that he was out of medications for which she will be started on Lantus 15 units q.h.s. at home as well as a regular insulin sliding scale. Patient will also be treated with Diflucan 150 mg p.o. daily for an additional seven days. He was instructed to follow up with the discharge Clinic in one week. All questions answered. Physical examination General: Alert and Oriented x3. No acute distress. Well-nourished. Obese Eyes: EOMI. Anicteric. HENT: Moist mucous membranes. Lungs: Clear to auscultation bilaterally. No accessory muscle use. Cardiovascular: Regular rate and rhythm. No murmur. No JVD. Abdomen: Soft, non-tender and non-distended. No palpable masses. Extremities: No edema. Non-tender. Skin: No rashes or lesions. Warm. Neurologic: No focal neurological deficits. CN II-XII grossly intact, but not individually tested. Psychiatric: Cooperative. Appropriate mood and affect. Total time spent with patient discussing and formulating plan of care: 35 minutes. This medical document was created using an electronic medical record system with [employer] dictation system. Although this document has been carefully reviewed, there may still be some phonetic and typographical errors. These areas are purely typographical due to imperfections of the software programs, and do not reflect any compromise in the patient's medical care. Condition at Discharge: Fair Final Diagnosis/Problems List Diabetic ketoacidosis Secondary Diagnosis: -diabetic ketoacidosis -juvenile diabetes -medication noncompliance -obesity -sirs without organ dysfunction -esophageal candidiasis Discharge Disposition: Home Discharge Instruct/Medications Diet: Consistent carbohydrate Activity: No Restrictions, As Tolerated Follow Up/Referral: Follow up with discharge Clinic in one week Recommend to obtain insurance and establish a PCP [facility] a.[id number] and HS Medications: Lantus 15 units q.h.s. Regular insulin sliding scale. Refer to medication reconciliation Diflucan 100 mg p.o. daily x7 days 36 Discharge Statement: "Patient was advised to return to the ER or call 911 if any headaches, dizziness, shortness of breath, chest pain, abdominal pain, bleeding, fevers, or worsening of medical condition. Patient was counseled about treatment plan, medications, possible side effects, patientverbalized understanding. All questions were answered to the best of my ability. This discharge took greater then 30 minutes in planning, reviewing documentation, counseling the patient, and discussing with other team members." ASSESSMENT ASSESSMENT Assessment Diabetic ketoacidosis Date of Service: Jul 20, 2024 Billing Provider: JUDITH WATTERS NP Common Visit Codes: [id number] DISCH DAY >30min JUDITH WATTERS NP Jul 20, 2024 09:12
[2024-07-20] MEDS: INSULIN LANTUS (GLARGINE) 1 /0.01ml (100units/ml) SC SCH (10:08)
[2024-07-20 11:31] VITALS: BP 121/68; PULSE 76; RESP 16; TEMP 36.8; O2SAT 99
== END 2024-07-20 12:45 | disposition home or self-care (01) | DRG 241 ==
LOC: ER 19:20 → TELE 21:35 → TELE-WESTW 07-15 15:33 → WEST WING 07-16 00:08 → DOU IN ICU 07-16 11:30 → WEST WING 07-17 14:20
PROVIDERS: ADMIT Nurse Practitioner; ATTEND Nurse Practitioner Acute Care
PROC: 0DB68ZX Excision of Stomach, Via Natural or Artificial Opening Endoscopic, Diagnostic (ICD-10-PCS; principal; 2024-07-19 10:23)
DX: K29.70 Gastritis, unspecified, without bleeding (principal); E11.10 Type 2 diabetes mellitus with ketoacidosis without coma; B37.81 Candidal esophagitis; R65.10 Systemic inflammatory response syndrome (SIRS) of non-infectious origin without acute organ dysfunction; E86.0 Dehydration; E66.9 Obesity, unspecified; E78.5 Hyperlipidemia, unspecified; M54.9 Dorsalgia, unspecified; F12.10 Cannabis abuse, uncomplicated; Z82.49 Family history of ischemic heart disease and other diseases of the circulatory system; Z91.199 Patient's noncompliance with other medical treatment and regimen due to unspecified reason; Z79.4 Long term (current) use of insulin; Z91.148 Patient's other noncompliance with medication regimen for other reason; Z83.3 Family history of diabetes mellitus; Z79.899 Other long term (current) drug therapy; Z68.37 Body mass index [BMI] 37.0-37.9, adult
CPT/HCPCS: 36415; 36600; 71045; 74018; 80048; 80053; 80307; 81001; 82010; 82805; 82962; 83036; 83735; 83880; 83930; 84100; 84484; 85025; 85379; 85610; 85652; 85730; 86141; 87081; 93005; 96365; 96372; 96375; G0378; J1815; J2405; J2470; J2704